=== PATIENT | female | born 1960 | race African-American/Black ===

== ENCOUNTER 2018-10-27 22:41 | Inpatient (IN) | payer MEDICAID, OTHER ==
[~2018-10-27] VITALS: Ht 157.5 cm; Wt 86.6 kg
[2018-10-27 23:15] LABS: BASOPHILS % (AUTO) 0.3 % (0-1); EOSINOPHILS # (AUTO) 0.2 X10'3 (0-0.9); EOSINOPHILS % (AUTO) 2.5 % (0-6); HEMATOCRIT 29.5 % (35.0-45.0); HEMOGLOBIN 9.8 g/dl (12.0-16.0); LYMPHOCYTES # (AUTO) 1.2 X10'3 (1.1-4.8); LYMPHOCYTES % (AUTO) 15.9 % (21-51); MEAN CORPUSCULAR HEMOGLOBIN 30.5 PG (27.0-31.0); MEAN CORPUSCULAR HGB CONC 33.1 % (33.0-36.5); MEAN CORPUSCULAR VOLUME 92.3 FL (78-98); MEAN PLATELET VOLUME 7.5 FL (7.4-10.4); MONOCYTES # (AUTO) 0.2 X10'3 (0-0.9); MONOCYTES % (AUTO) 3.1 % (2-12); NEUTROPHILS # (AUTO) 5.8 X10'3 (1.8-7.7); NEUTROPHILS % (AUTO) 78.2 % (42-75); PLATELET COUNT 438 X10'3 (140-440); RED CELL DISTRIBUTION WIDTH 13.7 % (11.5-14.5); WHITE BLOOD COUNT 7.4 X10'3 (4.5-11.0)
[2018-10-27 23:28] LABS: PROTHROMBIN TIME 11.1 SECONDS (9.0-12.0)
[2018-10-27 23:29] LABS: INR 1.1 INR
[2018-10-27 23:31] LABS: ALANINE AMINOTRANSFERASE 14 U/L (12-78); ALBUMIN 3.3 G/DL (3.4-5.0); ALBUMIN/GLOBULIN RATIO 0.8 (1.1-1.5); ALKALINE PHOSPHATASE 93 IU/L (46-116); ANION GAP 15 (8-16); ASPARTATE AMINO TRANSFERASE 16 U/L (10-37); BILIRUBIN,TOTAL 0.2 MG/DL (0.1-1.0); BLOOD UREA NITROGEN 37 MG/DL (7-18); CALCIUM 9.3 MG/DL (8.5-10.1); CHLORIDE 104 MMOL/L (99-107); CREATININE 2.64 MG/DL (0.40-0.90); GLUCOSE 171 MG/DL (70-104); POTASSIUM 5.2 MMOL/L (3.5-5.1); SODIUM 136 MMOL/L (135-145); TOTAL CARBON DIOXIDE 16.8 MMOL/L (24-32); TOTAL PROTEIN 7.7 G/DL (6.4-8.2); eGFR 22 ML/MIN
[2018-10-27] MEDS ORDERED: ondansetron 4mg rapidly disintigrating tab PO ONE (23:55)
[2018-10-27] MEDS ORDERED: HYDROcodone/acetaminophen 5mg/325mg tablet PO ONE (23:55)
[2018-10-27] MEDS ORDERED: pantoprazole 40mg Tablet.DR PO ONE (23:55)
[2018-10-27] MEDS ORDERED: mag hydrox/Alum hydrox/simeth 30ml oral suspension PO ONE (23:55)
[2018-10-27] MEDS ORDERED: famotidine 20mg tablet PO ONE (23:55)
[2018-10-27] MEDS ORDERED: LIDOcaine Viscous 15ml cup PO ONE (23:55)
[2018-10-28] VITALS (19 sets, daily range): BP systolic 121–173; BP diastolic 57–87
[2018-10-28 00:37] LABS: LIPASE 646 U/L (73-393); TROPONIN I < 0.04 NG/ML (0.0-0.05)
[2018-10-28] MEDS ORDERED: piperacillin/tazo 3.375gm/50ml 50 ML IV SCH ×3 (01:00→20:00)
[2018-10-28] MEDS ORDERED: normal saline 1000ML IV soln IVB ONE (01:00)
[2018-10-28] MEDS ORDERED: dextrose ORAL solution 15 GM/59 ML bottle PO PRN ×2 (01:40)
[2018-10-28] MEDS ORDERED: morphine 2 MG/ML inj. syringe IV PRN (01:40)
[2018-10-28] MEDS ORDERED: magnesium hydroxide 30ml (MOM) UD suspension PO PRN (01:40)
[2018-10-28] MEDS ORDERED: dextrose 50%-water 50ml dispensing syringe IV PRN ×2 (01:40)
[2018-10-28] MEDS ORDERED: acetaminophen 325mg tablet PO PRN ×2 (01:40)
[2018-10-28] MEDS ORDERED: acetaminophen 650mg rectal suppository RC PRN (01:40)
[2018-10-28] MEDS ORDERED: glucagon, human recombinant 1mg kit SUBCUT PRN (01:40)
[2018-10-28] MEDS ORDERED: ondansetron/PF 4mg/2ml inj IV PRN ×2 (01:40→14:05)
[2018-10-28] MEDS ORDERED: diphenhydrAMINE 25mg capsule PO PRN (01:40)
[2018-10-28] MEDS ORDERED: diphenhydrAMINE 50 mg/ml inj IV PRN (01:40)
[2018-10-28] MEDS ORDERED: mag hydrox/Alum hydrox/simeth 30ml oral suspension PO PRN (01:40)
[2018-10-28] MEDS ORDERED: MESSAGE TO PHARMACY PO ONE (01:40)
[2018-10-28] MEDS ORDERED: bisacodyl 10mg suppository rectal RC PRN (01:40)
[2018-10-28 02:04] LABS: CLARITY,URINE CLEAR (Clear); COLOR,URINE YELLOW (Yellow); GLUCOSE, URINE NEGATIVE (Neg); KETONES,URINE TRACE mg/dl (Neg); LEUKOCYTE ESTERASE ,URINE NEGATIVE (Neg); NITRITES, URINE NEGATIVE (Neg); OCCULT BLOOD,URINE TRACE-INTACT (Neg); PROTEIN,URINE >=300 mg/dl (Neg); UROBILINOGEN,URINE 0.2 E.U/dL (0.2-1.0)
[2018-10-28 02:07] LABS: HEMOGLOBIN A1C 6.2 % (4.5-6.2)
[2018-10-28 02:09] LABS: UA COLLECTION TYPE CLN CATCH MIDSTREAM
[2018-10-28 02:17] LABS: MUCUS STRANDS FEW /LPF (Neg); SQUAMOUS EPITHELIAL CELL,UR MODERATE /LPF (FEW)
[2018-10-28 02:18] LABS: AMORPHOUS URATES 1+; BACTERIA,URINE 2+ /HPF (Neg); RBC,URINE 0-2 /HPF (0-2); WBC,URINE 0-4 /HPF (0-4)
[2018-10-28 02:54] LABS: MAGNESIUM 2.4 MG/DL (1.5-2.4); PHOSPHORUS 3.1 MG/DL (2.3-4.5)
[2018-10-28] MEDS: pantoprazole 40MG/NS 100ML BAG 100 ML IV SCH ×6 (02:58→23:27)
[2018-10-28] MEDS ORDERED: furosemide 10 MG/1 ML 10ml inj IV ONE (03:20)
[2018-10-28] MEDS ORDERED: normal saline 1000ml 1,000 ML IV ONE (03:20)
[2018-10-28] MEDS: piperacillin/tazo 3.375gm/50ml 50 ML IV SCH ×2 (03:36→07:21)
[2018-10-28] MEDS ORDERED: AMLO10TA13 PO (05:02)
[2018-10-28] MEDS ORDERED: GLIM1TAB46 PO (05:02)
[2018-10-28] MEDS ORDERED: FURO-150 PO (05:03)
[2018-10-28] MEDS ORDERED: ASPI-1265 PO (05:04)
[2018-10-28] MEDS ORDERED: OMEP20TA23 PO (05:07)
[2018-10-28] MEDS ORDERED: METF500T PO (05:08)
[2018-10-28] MEDS ORDERED: diatrozoate meglu/diatrozoate sod (37% iodine) 120ML oral solution PO ONE (05:50)
[2018-10-28] MEDS: HYDROmorphone 1 mg/ml syringe IV PRN ×3 (05:56→23:27)
[2018-10-28] MEDS: normal saline 1000ml 1,000 ML IV SCH ×3 (06:01→21:36)
[2018-10-28] MEDS ORDERED: diatr meglu/diatrizoate 30ml oral sol.-(3 dose) bottle PO ONE ×2 (07:15→08:20)
[2018-10-28] MEDS: docusate sod 100mg capsule PO SCH ×2 (07:18→19:25)
[2018-10-28] MEDS ORDERED: piperacillin/tazo 4.5gm/100ml 100 ML IV SCH (08:00)
[2018-10-28] MEDS ORDERED: pantoprazole 40 MG vial IV SCH (08:00)
[2018-10-28] MEDS ORDERED: LISI-600 PO (10:44)
[2018-10-28] MEDS ORDERED: CARV-50 PO (10:44)
[2018-10-28 12:13] LABS: BASOPHILS % (AUTO) 0.1 % (0-1); EOSINOPHILS % (AUTO) 0.1 % (0-6); LYMPHOCYTES # (AUTO) 0.3 X10'3 (1.1-4.8); LYMPHOCYTES % (AUTO) 6.7 % (21-51); MEAN CORPUSCULAR HEMOGLOBIN 30.5 PG (27.0-31.0); MEAN CORPUSCULAR HGB CONC 33.4 % (33.0-36.5); MEAN CORPUSCULAR VOLUME 91.3 FL (78-98); MONOCYTES # (AUTO) 0.2 X10'3 (0-0.9); MONOCYTES % (AUTO) 4.5 % (2-12); NEUTROPHILS # (AUTO) 3.5 X10'3 (1.8-7.7); NEUTROPHILS % (AUTO) 88.6 % (42-75); PRE OP HEMATOCRIT 32.3 % (35.0-45.0); PRE OP INR 1.2 INR; PRE OP PLATELET COUNT 413 X10'3 (140-440); PRE OP PROTIME 11.7 SECONDS (9.0-12.0); RED BLOOD COUNT 3.53 X10'6 (4.20-5.60); RED CELL DISTRIBUTION WIDTH 13.5 % (11.5-14.5)
[2018-10-28] MEDS ORDERED: gentamicin 40 MG/1 ML inj ONE (12:20)
[2018-10-28] MEDS ORDERED: clindamycin phosphate 150mg/ml inj. ONE (12:20)
[2018-10-28 12:27] LABS: PRE OP HEMOGLOBIN 10.8 g/dL (12.0-16.0)
[2018-10-28] MEDS ORDERED: ceFOXitin 2 GM ADDvantage bag 100 ML IV ONE (12:45)
[2018-10-28] MEDS ORDERED: sevoflurane 250ml liquid IH ONE (13:10)
[2018-10-28] MEDS ORDERED: ondansetron/PF 4mg/2ml inj ONE (13:10)
[2018-10-28] MEDS ORDERED: midazolam 2 mg/2 ml injection ONE (13:14)
[2018-10-28] MEDS ORDERED: fentaNYL /PF 50mcg/ml 5ml ampule ONE (13:14)
[2018-10-28] MEDS ORDERED: LIDOcaine 2% (20mg/ml) 5ml vial ONE (13:16)
[2018-10-28] MEDS ORDERED: propofol inj 20 ML IV ONE (13:17)
[2018-10-28] MEDS ORDERED: rocuronium 10mg/ml inj IV ONE (13:17)
[2018-10-28] MEDS: piperacillin-tazo 2.25gm/50ml 50 ML IV SCH ×2 (14:00→19:31)
[2018-10-28] MEDS ORDERED: ringers solution, lacted 1,000 ML IV SCH (14:01)
[2018-10-28] MEDS ORDERED: morphine 4 MG/ML inj SYRINge IV PRN ×2 (14:05)
[2018-10-28] MEDS ORDERED: proCHLORperazine 10 MG/2 ml inj IV PRN (14:05)
[2018-10-28] MEDS ORDERED: meperidine/PF 25mg/ml syringe IV PRN ×3 (14:05)
[2018-10-28] MEDS ORDERED: glycopyrrolate 0.2mg/ml inj ONE (14:20)
[2018-10-28] MEDS ORDERED: neostigmine methylsulfate 1 MG/ML 10ml vial ONE (14:20)
[2018-10-28] MEDS ORDERED: phenylephrine 10mg/ml inj. ONE (14:20)
[2018-10-28] MEDS ORDERED: sugammadex 200mg/2ml injection IV ONE (14:33)
[2018-10-28] MEDS: insulin Lispro (HumaLOG) vial - multi-dose SQ SCH (17:46)
[2018-10-28] MEDS ORDERED: temazepam 15mg capsule PO PRN (21:00)
[2018-10-29] VITALS: BP 126/53
[2018-10-29] MEDS: normal saline 1000ml 1,000 ML IV SCH (00:34)
[2018-10-29] MEDS: pantoprazole 40MG/NS 100ML BAG 100 ML IV SCH ×5 (01:00→22:28)
[2018-10-29] MEDS: clindamycin 300mg/D5W 50mL 50 ML IV SCH ×3 (01:39→18:28)
[2018-10-29] MEDS: piperacillin-tazo 2.25gm/50ml 50 ML IV SCH ×4 (02:25→20:00)
[2018-10-29 05:08] LABS: BASOPHILS % (AUTO) 0.1 % (0-1); EOSINOPHILS % (AUTO) 0 % (0-6); HEMOGLOBIN 9.9 g/dl (12.0-16.0); LYMPHOCYTES # (AUTO) 0.5 X10'3 (1.1-4.8); LYMPHOCYTES % (AUTO) 6.1 % (21-51); MEAN CORPUSCULAR HEMOGLOBIN 30.7 PG (27.0-31.0); MEAN CORPUSCULAR HGB CONC 32.9 % (33.0-36.5); MEAN CORPUSCULAR VOLUME 93.3 FL (78-98); MEAN PLATELET VOLUME 7.9 FL (7.4-10.4); MONOCYTES # (AUTO) 0.6 X10'3 (0-0.9); MONOCYTES % (AUTO) 7.2 % (2-12); NEUTROPHILS # (AUTO) 7.2 X10'3 (1.8-7.7); NEUTROPHILS % (AUTO) 86.6 % (42-75); PLATELET COUNT 379 X10'3 (140-440); RED BLOOD COUNT 3.21 X10'6 (4.20-5.60); RED CELL DISTRIBUTION WIDTH 14.2 % (11.5-14.5); WHITE BLOOD COUNT 8.3 X10'3 (4.5-11.0)
[2018-10-29 05:24] LABS: ALANINE AMINOTRANSFERASE 15 U/L (12-78); ALBUMIN 2.1 G/DL (3.4-5.0); ALBUMIN/GLOBULIN RATIO 0.5 (1.1-1.5); ALKALINE PHOSPHATASE 67 IU/L (46-116); ANION GAP 13 (8-16); ASPARTATE AMINO TRANSFERASE 17 U/L (10-37); BILIRUBIN,TOTAL 0.3 MG/DL (0.1-1.0); BLOOD UREA NITROGEN 35 MG/DL (7-18); BUN/CREATININE RATIO 12.8 (6.6-38.0); CALCIUM 7.9 MG/DL (8.5-10.1); CHLORIDE 111 MMOL/L (99-107); CREATININE 2.73 MG/DL (0.40-0.90); GLUCOSE 125 MG/DL (70-104); POTASSIUM 5.6 MMOL/L (3.5-5.1); SODIUM 142 MMOL/L (135-145); TOTAL CARBON DIOXIDE 18.3 MMOL/L (24-32); eGFR 22 ML/MIN
[2018-10-29] MEDS: HYDROmorphone 1 mg/ml syringe IV PRN ×2 (05:55→19:24)
[2018-10-29] MEDS: docusate sod 100mg capsule PO SCH ×2 (06:54→19:56)
[2018-10-29 07:00] VITALS: BP 139/57
[2018-10-29] MEDS ORDERED: clindamycin 300mg/D5W 50mL 50 ML IV SCH (08:00)
[2018-10-29 11:00] VITALS: BP 145/63
[2018-10-29] MEDS: sodium bicarbonate (8.4%) inj. 100 MEQ in sodium chloride 0.45% 1,000 ML IV SCH ×2 (12:01→22:29)
[2018-10-29] MEDS ORDERED: FLU VACC QUAD 2018(5 YR UP)/PF 60 MCG/0.5 ML SYRINGE IM ONE (15:00)
[2018-10-29] MEDS: lisinopril 5mg tablet PO SCH (16:50)
[2018-10-29 17:27] LABS: CLARITY,URINE SLIGHTLY CLOUDY (Clear); COLOR,URINE YELLOW (Yellow); GLUCOSE, URINE NEGATIVE (Neg); KETONES,URINE TRACE mg/dl (Neg); LEUKOCYTE ESTERASE ,URINE NEGATIVE (Neg); NITRITES, URINE NEGATIVE (Neg); OCCULT BLOOD,URINE MODERATE (Neg); PH,URINE 5.5 (4.8-8.0); PROTEIN,URINE 100 mg/dl (Neg); UROBILINOGEN,URINE 0.2 E.U/dL (0.2-1.0)
[2018-10-29 17:30] LABS: UA COLLECTION TYPE NON-SPECIFIED
[2018-10-29 17:34] LABS: RBC,URINE 0-2 /HPF (0-2); SQUAMOUS EPITHELIAL CELL,UR FEW /LPF (FEW)
[2018-10-29 17:35] LABS: AMORPHOUS URATES 2+; BACTERIA,URINE NONE SEEN /HPF (Neg); WBC,URINE NONE SEEN /HPF (0-4)
[2018-10-29 17:37] LABS: TOTAL PROTEIN,URINE RANDOM 238.8 MG/DL
[2018-10-29 19:00] VITALS: BP 166/78
[2018-10-30] VITALS (7 sets, daily range): BP systolic 122–181; BP diastolic 59–84
[2018-10-30] MEDS: piperacillin-tazo 2.25gm/50ml 50 ML IV SCH ×4 (01:47→19:55)
[2018-10-30] MEDS: clindamycin 300mg/D5W 50mL 50 ML IV SCH ×3 (02:24→18:14)
[2018-10-30] MEDS: pantoprazole 40MG/NS 100ML BAG 100 ML IV SCH ×5 (03:33→20:54)
[2018-10-30 06:46] LABS: BASOPHILS % (AUTO) 0 % (0-1); EOSINOPHILS % (AUTO) 0.1 % (0-6); HEMATOCRIT 26.4 % (35.0-45.0); HEMOGLOBIN 8.6 g/dl (12.0-16.0); LYMPHOCYTES # (AUTO) 0.6 X10'3 (1.1-4.8); LYMPHOCYTES % (AUTO) 5.4 % (21-51); MEAN CORPUSCULAR HEMOGLOBIN 30.1 PG (27.0-31.0); MEAN CORPUSCULAR HGB CONC 32.5 % (33.0-36.5); MEAN CORPUSCULAR VOLUME 92.6 FL (78-98); MEAN PLATELET VOLUME 7.6 FL (7.4-10.4); MONOCYTES # (AUTO) 0.6 X10'3 (0-0.9); NEUTROPHILS # (AUTO) 9.4 X10'3 (1.8-7.7); NEUTROPHILS % (AUTO) 88.5 % (42-75); PLATELET COUNT 410 X10'3 (140-440); RED BLOOD COUNT 2.85 X10'6 (4.20-5.60); RED CELL DISTRIBUTION WIDTH 14.8 % (11.5-14.5); WHITE BLOOD COUNT 10.7 X10'3 (4.5-11.0)
[2018-10-30 07:09] LABS: ALANINE AMINOTRANSFERASE 14 U/L (12-78); ALBUMIN 1.9 G/DL (3.4-5.0); ALBUMIN/GLOBULIN RATIO 0.5 (1.1-1.5); ALKALINE PHOSPHATASE 70 IU/L (46-116); ANION GAP 14 (8-16); ASPARTATE AMINO TRANSFERASE 16 U/L (10-37); BILIRUBIN,TOTAL 0.3 MG/DL (0.1-1.0); BLOOD UREA NITROGEN 41 MG/DL (7-18); CALCIUM 8.1 MG/DL (8.5-10.1); CHLORIDE 112 MMOL/L (99-107); CREATININE 3.15 MG/DL (0.40-0.90); GLUCOSE 122 MG/DL (70-104); POTASSIUM 4.7 MMOL/L (3.5-5.1); SODIUM 145 MMOL/L (135-145); TOTAL CARBON DIOXIDE 19.4 MMOL/L (24-32); eGFR 18 ML/MIN
[2018-10-30] MEDS: docusate sod 100mg capsule PO SCH ×2 (07:14→19:55)
[2018-10-30] MEDS: lisinopril 5mg tablet PO SCH (07:14)
[2018-10-30] MEDS: sodium bicarbonate (8.4%) inj. 100 MEQ in sodium chloride 0.45% 1,000 ML IV SCH ×2 (07:50→10:18)
[2018-10-30] MEDS: HYDROmorphone 1 mg/ml syringe IV PRN (10:42)
[2018-10-30] MEDS: carVEDilol 12.5mg tablet PO SCH (19:55)
[2018-10-30] MEDS: furosemide 20 MG/2 ML vial IV SCH (19:56)
[2018-10-30] MEDS ORDERED: furosemide 40mg/4ml inj IV SCH (20:00)
[2018-10-31] MEDS: piperacillin-tazo 2.25gm/50ml 50 ML IV SCH ×4 (01:45→19:37)
[2018-10-31] MEDS: pantoprazole 40MG/NS 100ML BAG 100 ML IV SCH ×5 (01:46→19:37)
[2018-10-31] MEDS: clindamycin 300mg/D5W 50mL 50 ML IV SCH (02:22)
[2018-10-31 07:00] VITALS: BP 123/64
[2018-10-31] MEDS: docusate sod 100mg capsule PO SCH ×2 (09:08→19:37)
[2018-10-31] MEDS: carVEDilol 12.5mg tablet PO SCH ×2 (09:09→19:37)
[2018-10-31] MEDS: furosemide 20 MG/2 ML vial IV SCH (09:09)
[2018-10-31 09:22] LABS: BASOPHILS % (AUTO) 0.1 % (0-1); EOSINOPHILS # (AUTO) 0.1 X10'3 (0-0.9); HEMATOCRIT 24.3 % (35.0-45.0); HEMOGLOBIN 7.9 g/dl (12.0-16.0); LYMPHOCYTES # (AUTO) 0.8 X10'3 (1.1-4.8); LYMPHOCYTES % (AUTO) 7.4 % (21-51); MEAN CORPUSCULAR HEMOGLOBIN 30.1 PG (27.0-31.0); MEAN CORPUSCULAR HGB CONC 32.5 % (33.0-36.5); MEAN CORPUSCULAR VOLUME 92.4 FL (78-98); MEAN PLATELET VOLUME 7.2 FL (7.4-10.4); MONOCYTES # (AUTO) 0.7 X10'3 (0-0.9); MONOCYTES % (AUTO) 6.8 % (2-12); NEUTROPHILS % (AUTO) 84.7 % (42-75); PLATELET COUNT 393 X10'3 (140-440); RED BLOOD COUNT 2.63 X10'6 (4.20-5.60); RED CELL DISTRIBUTION WIDTH 14.3 % (11.5-14.5); WHITE BLOOD COUNT 10.7 X10'3 (4.5-11.0)
[2018-10-31] MEDS: insulin Lispro (HumaLOG) vial - multi-dose SQ SCH ×2 (09:49→14:05)
[2018-10-31 10:02] LABS: ALANINE AMINOTRANSFERASE 10 U/L (12-78); ALBUMIN 1.8 G/DL (3.4-5.0); ALBUMIN/GLOBULIN RATIO 0.4 (1.1-1.5); ALKALINE PHOSPHATASE 75 IU/L (46-116); ANION GAP 13 (8-16); ASPARTATE AMINO TRANSFERASE 13 U/L (10-37); BILIRUBIN,TOTAL 0.2 MG/DL (0.1-1.0); BLOOD UREA NITROGEN 44 MG/DL (7-18); BUN/CREATININE RATIO 13.6 (6.6-38.0); CALCIUM 8.1 MG/DL (8.5-10.1); CHLORIDE 110 MMOL/L (99-107); CREATININE 3.23 MG/DL (0.40-0.90); GLUCOSE 170 MG/DL (70-104); POTASSIUM 4.2 MMOL/L (3.5-5.1); SODIUM 143 MMOL/L (135-145); TOTAL CARBON DIOXIDE 20.5 MMOL/L (24-32); eGFR 18 ML/MIN
[2018-10-31] MEDS: HYDROcodone/acetaminophen 10/325mg tab PO PRN (10:45)
[2018-10-31 11:00] VITALS: BP 124/55
[2018-10-31] MEDS: normal saline 1000ml 1,000 ML IV SCH (18:55)
[2018-10-31 19:35] VITALS: BP 180/60
[2018-10-31 20:00] VITALS: BP 148/73
[2018-10-31 23:30] VITALS: BP 138/57
[2018-11-01] MEDS: piperacillin-tazo 2.25gm/50ml 50 ML IV SCH ×4 (01:04→19:10)
[2018-11-01] MEDS: pantoprazole 40MG/NS 100ML BAG 100 ML IV SCH ×3 (01:04→12:02)
[2018-11-01] MEDS: normal saline 1000ml 1,000 ML IV SCH (03:56)
[2018-11-01 05:24] LABS: BASOPHILS % (AUTO) 0 % (0-1); EOSINOPHILS # (AUTO) 0.2 X10'3 (0-0.9); HEMATOCRIT 23.9 % (35.0-45.0); HEMOGLOBIN 7.9 g/dl (12.0-16.0); LYMPHOCYTES % (AUTO) 13.5 % (21-51); MEAN CORPUSCULAR HEMOGLOBIN 30.3 PG (27.0-31.0); MEAN CORPUSCULAR HGB CONC 32.9 % (33.0-36.5); MEAN CORPUSCULAR VOLUME 92.1 FL (78-98); MEAN PLATELET VOLUME 8.1 FL (7.4-10.4); MONOCYTES # (AUTO) 0.8 X10'3 (0-0.9); MONOCYTES % (AUTO) 10.8 % (2-12); NEUTROPHILS # (AUTO) 5.1 X10'3 (1.8-7.7); NEUTROPHILS % (AUTO) 72.7 % (42-75); PLATELET COUNT 378 X10'3 (140-440); RED BLOOD COUNT 2.59 X10'6 (4.20-5.60); RED CELL DISTRIBUTION WIDTH 14.2 % (11.5-14.5)
[2018-11-01 05:30] LABS: ALANINE AMINOTRANSFERASE 9 U/L (12-78); ALBUMIN 1.7 G/DL (3.4-5.0); ALBUMIN/GLOBULIN RATIO 0.4 (1.1-1.5); ALKALINE PHOSPHATASE 72 IU/L (46-116); ANION GAP 13 (8-16); ASPARTATE AMINO TRANSFERASE 14 U/L (10-37); BILIRUBIN,TOTAL 0.3 MG/DL (0.1-1.0); BLOOD UREA NITROGEN 39 MG/DL (7-18); BUN/CREATININE RATIO 13.1 (6.6-38.0); CALCIUM 7.7 MG/DL (8.5-10.1); CHLORIDE 108 MMOL/L (99-107); CREATININE 2.97 MG/DL (0.40-0.90); GLUCOSE 120 MG/DL (70-104); POTASSIUM 4.1 MMOL/L (3.5-5.1); SODIUM 142 MMOL/L (135-145); TOTAL CARBON DIOXIDE 20.9 MMOL/L (24-32); TOTAL PROTEIN 5.8 G/DL (6.4-8.2); eGFR 20 ML/MIN
[2018-11-01 07:00] VITALS: BP 144/54
[2018-11-01] MEDS: docusate sod 100mg capsule PO SCH ×2 (07:34→19:10)
[2018-11-01] MEDS: carVEDilol 12.5mg tablet PO SCH ×2 (07:34→19:10)
[2018-11-01 11:02] VITALS: BP 144/72
[2018-11-01] MEDS: HYDROcodone/acetaminophen 10/325mg tab PO PRN (13:58)
[2018-11-01] MEDS: amLODIPine 5mg tablet PO SCH (16:19)
[2018-11-01] MEDS: insulin Lispro (HumaLOG) vial - multi-dose SQ SCH (18:23)
[2018-11-01 19:00] VITALS: BP 122/53
[2018-11-01] MEDS: pantoprazole 40mg Tablet.DR PO SCH (19:10)
[2018-11-01 20:00] VITALS: BP 122/53
[2018-11-02] VITALS: BP 149/63
[2018-11-02] MEDS: piperacillin-tazo 2.25gm/50ml 50 ML IV SCH ×4 (01:44→19:02)
[2018-11-02 05:31] LABS: HEMATOCRIT 24.3 % (35.0-45.0); HEMOGLOBIN 8.5 g/dl (12.0-16.0); MEAN CORPUSCULAR HEMOGLOBIN 31.9 PG (27.0-31.0); MEAN CORPUSCULAR VOLUME 91.1 FL (78-98); MEAN PLATELET VOLUME 7.9 FL (7.4-10.4); NEUTROPHILS % (AUTO) 69.3 % (42-75); PLATELET COUNT 396 X10'3 (140-440); RED BLOOD COUNT 2.66 X10'6 (4.20-5.60); RED CELL DISTRIBUTION WIDTH 13.1 % (11.5-14.5); WHITE BLOOD COUNT 8.6 X10'3 (4.5-11.0)
[2018-11-02 05:32] LABS: BASOPHILS % (AUTO) 0.2 % (0-1); EOSINOPHILS # (AUTO) 0.3 X10'3 (0-0.9); EOSINOPHILS % (AUTO) 3 % (0-6); LYMPHOCYTES # (AUTO) 1.2 X10'3 (1.1-4.8); LYMPHOCYTES % (AUTO) 13.7 % (21-51); MONOCYTES # (AUTO) 1.2 X10'3 (0-0.9); MONOCYTES % (AUTO) 13.8 % (2-12); NEUTROPHILS # (AUTO) 5.9 X10'3 (1.8-7.7)
[2018-11-02 05:44] LABS: ALANINE AMINOTRANSFERASE 9 U/L (12-78); ALBUMIN 1.7 G/DL (3.4-5.0); ALBUMIN/GLOBULIN RATIO 0.4 (1.1-1.5); ALKALINE PHOSPHATASE 61 IU/L (46-116); ANION GAP 11 (8-16); ASPARTATE AMINO TRANSFERASE 10 U/L (10-37); BILIRUBIN,TOTAL 0.2 MG/DL (0.1-1.0); BLOOD UREA NITROGEN 39 MG/DL (7-18); CALCIUM 7.5 MG/DL (8.5-10.1); CHLORIDE 107 MMOL/L (99-107); CREATININE 3.01 MG/DL (0.40-0.90); GLUCOSE 141 MG/DL (70-104); POTASSIUM 3.8 MMOL/L (3.5-5.1); SODIUM 139 MMOL/L (135-145); TOTAL CARBON DIOXIDE 20.7 MMOL/L (24-32); TOTAL PROTEIN 5.6 G/DL (6.4-8.2); eGFR 19 ML/MIN
[2018-11-02 07:00] VITALS: BP_SYST 118; BP_SYST 163; BP_DIAS 69; BP_DIAS 91
[2018-11-02] MEDS: pantoprazole 40mg Tablet.DR PO SCH ×2 (07:25→21:14)
[2018-11-02] MEDS: amLODIPine 5mg tablet PO SCH (07:25)
[2018-11-02] MEDS: carVEDilol 12.5mg tablet PO SCH ×2 (07:25→21:15)
[2018-11-02] MEDS: docusate sod 100mg capsule PO SCH ×2 (07:25→20:00)
[2018-11-02 10:35] VITALS: BP 163/69
[2018-11-02 11:00] VITALS: BP 157/57
[2018-11-02] MEDS: normal saline 1000ml 1,000 ML IV SCH ×2 (11:55→19:02)
[2018-11-02] MEDS ORDERED: amLODIPine 5mg tablet PO ONE (12:00)
[2018-11-02] MEDS: insulin Lispro (HumaLOG) vial - multi-dose SQ SCH (18:58)
[2018-11-02 20:00] VITALS: BP 162/60
[2018-11-03] VITALS: BP 143/59
[2018-11-03] MEDS: piperacillin-tazo 2.25gm/50ml 50 ML IV SCH ×3 (01:09→14:00)
[2018-11-03] MEDS: normal saline 1000ml 1,000 ML IV SCH ×2 (01:44→11:55)
[2018-11-03 07:22] VITALS: BP 164/71
[2018-11-03] MEDS ORDERED: amLODIPine 5mg tablet PO SCH (08:00)
[2018-11-03] MEDS ORDERED: lisinopril 20mg tablet PO SCH (09:00)
[2018-11-03] MEDS: carVEDilol 12.5mg tablet PO SCH (09:22)
[2018-11-03] MEDS: pantoprazole 40mg Tablet.DR PO SCH (09:23)
[2018-11-03] MEDS: docusate sod 100mg capsule PO SCH (09:23)
[2018-11-03] MEDS: insulin Lispro (HumaLOG) vial - multi-dose SQ SCH (09:29)
[2018-11-03 10:06] LABS: ALANINE AMINOTRANSFERASE 9 U/L (12-78); ALBUMIN 1.9 G/DL (3.4-5.0); ALBUMIN/GLOBULIN RATIO 0.4 (1.1-1.5); ALKALINE PHOSPHATASE 80 IU/L (46-116); ANION GAP 11 (8-16); ASPARTATE AMINO TRANSFERASE 14 U/L (10-37); BILIRUBIN,TOTAL 0.2 MG/DL (0.1-1.0); BLOOD UREA NITROGEN 35 MG/DL (7-18); BUN/CREATININE RATIO 12.5 (6.6-38.0); CALCIUM 8.3 MG/DL (8.5-10.1); CHLORIDE 104 MMOL/L (99-107); CREATININE 2.79 MG/DL (0.40-0.90); GLUCOSE 180 MG/DL (70-104); POTASSIUM 3.9 MMOL/L (3.5-5.1); SODIUM 138 MMOL/L (135-145); TOTAL CARBON DIOXIDE 23.4 MMOL/L (24-32); TOTAL PROTEIN 6.6 G/DL (6.4-8.2); eGFR 21 ML/MIN
[2018-11-03 10:07] LABS: BASOPHILS % (AUTO) 0 % (0-1); EOSINOPHILS # (AUTO) 0.2 X10'3 (0-0.9); EOSINOPHILS % (AUTO) 2.3 % (0-6); HEMATOCRIT 27.7 % (35.0-45.0); HEMOGLOBIN 9.1 g/dl (12.0-16.0); LYMPHOCYTES % (AUTO) 9.8 % (21-51); MEAN CORPUSCULAR HEMOGLOBIN 30.1 PG (27.0-31.0); MEAN CORPUSCULAR HGB CONC 32.8 % (33.0-36.5); MEAN CORPUSCULAR VOLUME 91.9 FL (78-98); MEAN PLATELET VOLUME 7.7 FL (7.4-10.4); MONOCYTES # (AUTO) 1.4 X10'3 (0-0.9); MONOCYTES % (AUTO) 14.2 % (2-12); NEUTROPHILS # (AUTO) 7.2 X10'3 (1.8-7.7); NEUTROPHILS % (AUTO) 73.7 % (42-75); PLATELET COUNT 489 X10'3 (140-440); RED BLOOD COUNT 3.02 X10'6 (4.20-5.60); RED CELL DISTRIBUTION WIDTH 13.7 % (11.5-14.5); WHITE BLOOD COUNT 9.8 X10'3 (4.5-11.0)
[2018-11-03 11:15] VITALS: BP 151/75
[2018-11-03 11:37] VITALS: BP 151/75
[2018-11-03 13:10] VITALS: BP 153/63
[2018-11-03] MEDS ORDERED: AMOX-580 PO (14:59)
== END 2018-11-03 15:30 | disposition home or self-care (01) | DRG 223 ==
LOC: ER 22:42 → ED HOLD 10-28 01:36 → SUR 3N 10-28 04:20
PROVIDERS: ADMIT Family Medicine; ATTEND Family Medicine
PROC: 0DU907Z Supplement Duodenum with Autologous Tissue Substitute, Open Approach (ICD-10-PCS; principal; 2018-10-28 13:05)
PROC: 3E02340 Introduction of Influenza Vaccine into Muscle, Percutaneous Approach (ICD-10-PCS; 2018-10-29)
DX: K26.1 Acute duodenal ulcer with perforation (principal); N17.0 Acute kidney failure with tubular necrosis; E11.10 Type 2 diabetes mellitus with ketoacidosis without coma; K65.8 Other peritonitis; I13.0 Hypertensive heart and chronic kidney disease with heart failure and stage 1 through stage 4 chronic kidney disease, or unspecified chronic kidney disease; E11.21 Type 2 diabetes mellitus with diabetic nephropathy; I50.32 Chronic diastolic (congestive) heart failure; E11.22 Type 2 diabetes mellitus with diabetic chronic kidney disease; E87.2 Acidosis; D62 Acute posthemorrhagic anemia; E87.5 Hyperkalemia; K52.9 Noninfective gastroenteritis and colitis, unspecified; N18.4 Chronic kidney disease, stage 4 (severe); K56.7 Ileus, unspecified; K21.9 Gastro-esophageal reflux disease without esophagitis; Z60.2 Problems related to living alone; Z88.2 Allergy status to sulfonamides; Z79.899 Other long term (current) drug therapy; Z79.82 Long term (current) use of aspirin; Z79.84 Long term (current) use of oral hypoglycemic drugs; Z80.0 Family history of malignant neoplasm of digestive organs; Z82.49 Family history of ischemic heart disease and other diseases of the circulatory system; Z83.3 Family history of diabetes mellitus; Z23 Encounter for immunization
CPT/HCPCS: 36415; 71045; 74150; 74176; 76775; 80053; 81001; 82570; 82948; 83036; 83605; 83690; 83735; 83880; 83935; 84100; 84156; 84300; 84484; 85025; 85610; 85730; 86885; 86900; 86901; 87040; 87070; 87075; 87077; 87102; 93005; 93306; 99285; A6253; A6266; A6449; A7000; C1758; C9113; C9399; G0378; J0694; J1170; J1580; J1940; J2001; J2250; J2370; J2405; J2543; J2704; J2710; J3010; J3490; J7030; J7120; Q2037; Q9963; X5958

== ENCOUNTER 2019-01-20 16:36 | Emergency (ER) | payer MEDICAID, OTHER ==
[~2019-01-20] VITALS: Ht 154.9 cm; Wt 77.3 kg
[~2019-01-20 16:36] MED LIST: AMLO10TA13 PO; ASPI-1265 PO; CARV-50 PO; GLIM1TAB46 PO; LISI-600 PO; OMEP20TA23 PO
[2019-01-20] MEDS ORDERED: hyDRALAzine 10mg tablet PO ONE (19:55)
[2019-01-20] MEDS ORDERED: hyDRALAzine 10mg tablet PO SCH (19:55)
[2019-01-20 20:09] VITALS: BP 186/85
== END 2019-01-20 20:36 | disposition home or self-care (01) ==
LOC: ER 16:36
DX: I11.0 Hypertensive heart disease with heart failure (principal); I50.9 Heart failure, unspecified; E11.9 Type 2 diabetes mellitus without complications; Z88.2 Allergy status to sulfonamides; Z79.82 Long term (current) use of aspirin; Z79.899 Other long term (current) drug therapy
CPT/HCPCS: 93005; 99284

== ENCOUNTER 2019-02-22 14:04 | Inpatient (IN) | payer MEDICAID ==
[~2019-02-22] VITALS: Ht 157.5 cm; Wt 81.4 kg
[2019-02-22 15:56] LABS: BASOPHILS % (AUTO) 0.7 % (0-1); EOSINOPHILS # (AUTO) 0.4 X10'3 (0-0.9); EOSINOPHILS % (AUTO) 8.7 % (0-6); HEMATOCRIT 28.7 % (35.0-45.0); HEMOGLOBIN 9.5 g/dl (12.0-16.0); LYMPHOCYTES # (AUTO) 1.6 X10'3 (1.1-4.8); LYMPHOCYTES % (AUTO) 33.9 % (21-51); MEAN CORPUSCULAR HEMOGLOBIN 29.5 PG (27.0-31.0); MEAN CORPUSCULAR HGB CONC 33.1 g/dL (33.0-36.5); MEAN PLATELET VOLUME 6.9 FL (7.4-10.4); MONOCYTES # (AUTO) 0.5 X10'3 (0-0.9); MONOCYTES % (AUTO) 9.6 % (2-12); NEUTROPHILS # (AUTO) 2.2 X10'3 (1.8-7.7); NEUTROPHILS % (AUTO) 47.1 % (42-75); PLATELET COUNT 289 X10'3 (140-440); RED BLOOD COUNT 3.23 X10'6 (4.20-5.60); RED CELL DISTRIBUTION WIDTH 16.2 % (11.5-14.5); WHITE BLOOD COUNT 4.7 X10'3 (4.5-11.0)
[2019-02-22 16:08] LABS: ALANINE AMINOTRANSFERASE 32 U/L (12-78); ALBUMIN 3.6 G/DL (3.4-5.0); ALBUMIN/GLOBULIN RATIO 0.9 (1.1-1.5); ALKALINE PHOSPHATASE 72 IU/L (46-116); ANION GAP 9 (8-16); ASPARTATE AMINO TRANSFERASE 19 U/L (10-37); BILIRUBIN,TOTAL 0.1 MG/DL (0.1-1.0); BLOOD UREA NITROGEN 57 MG/DL (7-18); BUN/CREATININE RATIO 18.4 (6.6-38.0); CALCIUM 8.7 MG/DL (8.5-10.1); CHLORIDE 110 MMOL/L (99-107); SODIUM 138 MMOL/L (135-145); TOTAL CARBON DIOXIDE 19.3 MMOL/L (24-32); TOTAL PROTEIN 7.5 G/DL (6.4-8.2); eGFR 19 ML/MIN
[2019-02-22 16:17] LABS: GLUCOSE 63 MG/DL (70-104); POTASSIUM 6.7 MMOL/L (3.5-5.1)
[2019-02-22] MEDS ORDERED: sodium bicarbonate (0.9mEq/ml) 44.6 mEq/50ml syringe IV ONE (16:20)
[2019-02-22] MEDS ORDERED: normal saline 1000ML IV soln IVB ONE (16:20)
[2019-02-22] MEDS ORDERED: calcium gluconate inj. 1 GM in normal saline 100ml IV soln 100 ML IV ONE (16:20)
[2019-02-22] MEDS ORDERED: sodium polystyrene sulfonate 15gm/60ml oral suspension PO ONE (16:20)
[2019-02-22] MEDS ORDERED: dextrose 50%-water 50ml dispensing syringe IV ONE ×2 (16:20→18:20)
[2019-02-22] MEDS ORDERED: insulin regular, human 10 units/0.1 ml syringe IV ONE (16:20)
[2019-02-22] MEDS ORDERED: sodium bicarbonate (8.4%) inj. 1 MEQ/ML ML IV ONE (17:05)
[2019-02-22] MEDS ORDERED: LISI40TA4 PO (17:35)
[2019-02-22] MEDS ORDERED: CARV25TA2 PO (17:35)
[2019-02-22] MEDS: normal saline 1000ml 1,000 ML IV SCH (17:46)
[2019-02-22] MEDS ORDERED: magnesium hydroxide 30ml (MOM) UD suspension PO PRN (17:50)
[2019-02-22] MEDS ORDERED: mag hydrox/Alum hydrox/simeth 30ml oral suspension PO PRN (17:50)
[2019-02-22] MEDS ORDERED: ondansetron/PF 4mg/2ml inj IV PRN (17:50)
[2019-02-22] MEDS ORDERED: acetaminophen 325mg tablet PO PRN ×2 (17:50)
--- NOTE | 2019-02-22 18:26 | NUR ---
AWARE OF BS 20. CORAL IS ADMIN D50
[2019-02-22] MEDS ORDERED: glucagon, human recombinant 1mg kit SUBCUT PRN (18:35)
[2019-02-22] MEDS ORDERED: MESSAGE TO PHARMACY PO ONE (18:35)
[2019-02-22] MEDS ORDERED: dextrose 50%-water 50ml dispensing syringe IV PRN ×2 (18:35)
[2019-02-22] MEDS ORDERED: dextrose ORAL solution 15 GM/59 ML bottle PO PRN ×2 (18:35)
[2019-02-22] MEDS ORDERED: insulin Lispro (HumaLOG) vial - multi-dose SQ SCH (18:35)
[2019-02-22 19:08] LABS: HEMOGLOBIN A1C 5.8 % (4.5-6.2)
[2019-02-22] MEDS ORDERED: non-formulary drug (Carvedilol 1 TAB) PO SCH (20:00)
[2019-02-22] MEDS: carVEDilol 12.5mg tablet PO SCH (20:49)
[2019-02-22] MEDS: heparin, porcine 5000 units/ml vial SQ SCH (20:49)
[2019-02-22] MEDS ORDERED: temazepam 15mg capsule PO PRN (21:00)
[2019-02-22] MEDS ORDERED: aspirin 81mg tab.chew PO SCH (21:00)
[2019-02-22] MEDS ORDERED: insulin glargine (Lantus) pen - multi-dose SQ SCH (21:00)
--- NOTE | 2019-02-22 22:23 | NUR ---
Patient in room ED 10. I have received report from Allyssa ORELLANA and had the opportunity to ask questions and assume patient care.
--- NOTE | 2019-02-22 23:20 | NUR ---
Patient arrived to PCU.
[2019-02-22] MEDS: hyDRALAzine 10mg tablet PO SCH (23:34)
[2019-02-22 23:45] VITALS: BP 209/81
--- NOTE | 2019-02-23 00:21 | NUR ---
Paged Dr. Mi. PAGER ID: [phone] MESSAGE: Ed ORELLANA [phone] Kerri Sheth: BP on admit (2345) 209/8; administered 0000 scheduled hydralazine. Current BP 185/76. Thank you.
[2019-02-23] MEDS ORDERED: labetalol 20mg/4ml (5mg/ml) syringe IV PRN (00:45)
[2019-02-23 03:00] VITALS: BP 182/72
[2019-02-23] MEDS: normal saline 1000ml 1,000 ML IV SCH ×2 (03:46→13:36)
[2019-02-23 07:00] VITALS: BP 189/74
[2019-02-23 07:05] LABS: HEMATOCRIT 26.5 % (35.0-45.0); MEAN CORPUSCULAR HEMOGLOBIN 29.8 PG (27.0-31.0); MEAN CORPUSCULAR HGB CONC 33.9 g/dL (33.0-36.5); MEAN PLATELET VOLUME 7.1 FL (7.4-10.4); PLATELET COUNT 258 X10'3 (140-440); RED BLOOD COUNT 3.01 X10'6 (4.20-5.60); RED CELL DISTRIBUTION WIDTH 16.3 % (11.5-14.5); WHITE BLOOD COUNT 4.4 X10'3 (4.5-11.0)
[2019-02-23 07:21] LABS: ALANINE AMINOTRANSFERASE 30 U/L (12-78); ALBUMIN 2.9 G/DL (3.4-5.0); ALBUMIN/GLOBULIN RATIO 0.8 (1.1-1.5); ALKALINE PHOSPHATASE 62 IU/L (46-116); ASPARTATE AMINO TRANSFERASE 23 U/L (10-37); BILIRUBIN,TOTAL 0.1 MG/DL (0.1-1.0); BLOOD UREA NITROGEN 47 MG/DL (7-18); BUN/CREATININE RATIO 18.1 (6.6-38.0); CALCIUM 8.2 MG/DL (8.5-10.1); CHLORIDE 113 MMOL/L (99-107); GLUCOSE 72 MG/DL (70-104); POTASSIUM 4.9 MMOL/L (3.5-5.1); TOTAL CARBON DIOXIDE 20.7 MMOL/L (24-32); TOTAL PROTEIN 6.6 G/DL (6.4-8.2); eGFR 23 ML/MIN
[2019-02-23] MEDS ORDERED: pantoprazole 40mg Tablet.DR PO SCH (07:30)
[2019-02-23 07:41] LABS: ANION GAP 10 (8-16); SODIUM 144 MMOL/L (135-145)
[2019-02-23] MEDS: heparin, porcine 5000 units/ml vial SQ SCH (08:02)
[2019-02-23] MEDS: carVEDilol 12.5mg tablet PO SCH (08:03)
[2019-02-23] MEDS: hyDRALAzine 10mg tablet PO SCH ×2 (08:03→15:16)
[2019-02-23] MEDS ORDERED: amLODIPine 5mg tablet PO SCH (08:35)
[2019-02-23 11:00] VITALS: BP 179/65
[2019-02-23 15:00] VITALS: BP 180/65
[2019-02-23] MEDS ORDERED: HYDR-4069 PO (15:51)
--- NOTE | 2019-02-23 17:11 | NUR ---
Patient discharged. Patient discharged home. Patient escorted from PCU via wheelchair accompanied by nurse's aide to be driven home in private vehicle by patient's friend/family. IV catheter removed prior to discharge, catheter intact. Tele leads removed from patient and tele box returned to [facility]. New prescriptions delivered to patient at bedside via [facility]. Medications and discharge instructions discussed with patient via RN. All questions and concerns addressed prior to discharge. All patient belongings accompanied patient at discharge.
== END 2019-02-23 17:25 | disposition home health service (06) | DRG 469 ==
LOC: ER 14:05 → ED HOLD 17:45 → PCU 3S 23:00
PROVIDERS: ADMIT Family Medicine; ATTEND Family Medicine
DX: N17.9 Acute kidney failure, unspecified (principal); E11.22 Type 2 diabetes mellitus with diabetic chronic kidney disease; I13.0 Hypertensive heart and chronic kidney disease with heart failure and stage 1 through stage 4 chronic kidney disease, or unspecified chronic kidney disease; I50.9 Heart failure, unspecified; E87.5 Hyperkalemia; K26.9 Duodenal ulcer, unspecified as acute or chronic, without hemorrhage or perforation; D63.1 Anemia in chronic kidney disease; N18.4 Chronic kidney disease, stage 4 (severe); E86.0 Dehydration; L98.9 Disorder of the skin and subcutaneous tissue, unspecified; Z87.11 Personal history of peptic ulcer disease; Z88.2 Allergy status to sulfonamides; Z79.899 Other long term (current) drug therapy; Z79.82 Long term (current) use of aspirin
CPT/HCPCS: 36415; 80053; 82948; 83036; 85025; 85027; 87070; 96361; 96374; 99285; G0378; J0610; J1644; J1815; J3490; J7030

== ENCOUNTER 2019-03-06 14:58 | Inpatient (IN) | payer MEDICAID ==
[~2019-03-06] VITALS: Ht 157.5 cm; Wt 84.5 kg
[~2019-03-06 14:58] MED LIST changes: -CARV-50 PO; +CARV25TA2 PO; +HYDR-4069 PO; -LISI-600 PO
[2019-03-06 16:26] LABS: INR 1.1 INR; PROTHROMBIN TIME 10.8 SECONDS (9.0-12.0)
[2019-03-06 16:37] LABS: ALANINE AMINOTRANSFERASE 77 U/L (12-78); ALBUMIN 3.2 G/DL (3.4-5.0); ALBUMIN/GLOBULIN RATIO 0.8 (1.1-1.5); ALKALINE PHOSPHATASE 103 IU/L (46-116); ANION GAP 12 (8-16); ASPARTATE AMINO TRANSFERASE 89 U/L (10-37); BILIRUBIN,TOTAL 0.1 MG/DL (0.1-1.0); BLOOD UREA NITROGEN 57 MG/DL (7-18); BUN/CREATININE RATIO 19.1 (6.6-38.0); CALCIUM 8.7 MG/DL (8.5-10.1); CHLORIDE 110 MMOL/L (99-107); CREATININE 2.98 MG/DL (0.40-0.90); GLUCOSE 189 MG/DL (70-104); SODIUM 139 MMOL/L (135-145); TOTAL CARBON DIOXIDE 16.9 MMOL/L (24-32); TOTAL PROTEIN 7.4 G/DL (6.4-8.2); eGFR 19 ML/MIN
[2019-03-06 16:53] LABS: POTASSIUM 6.1 MMOL/L (3.5-5.1)
--- NOTE | 2019-03-06 16:59 | NUR ---
pat spo2 85 on 0.5 l nasal cannula ,notified dr nasima penn now on 4l of o2 spo2 92.head of the bed elevated as per md instruction.
[2019-03-06 17:00] LABS: BASOPHILS % (AUTO) 0.8 % (0-1); EOSINOPHILS # (AUTO) 0.5 X10'3 (0-0.9); EOSINOPHILS % (AUTO) 10.7 % (0-6); HEMATOCRIT 24.2 % (35.0-45.0); HEMOGLOBIN 8.2 g/dl (12.0-16.0); LYMPHOCYTES # (AUTO) 0.9 X10'3 (1.1-4.8); LYMPHOCYTES % (AUTO) 20.2 % (21-51); MEAN CORPUSCULAR HEMOGLOBIN 30.2 PG (27.0-31.0); MEAN CORPUSCULAR VOLUME 88.9 FL (78-98); MONOCYTES # (AUTO) 0.4 X10'3 (0-0.9); MONOCYTES % (AUTO) 7.9 % (2-12); NEUTROPHILS # (AUTO) 2.7 X10'3 (1.8-7.7); NEUTROPHILS % (AUTO) 60.4 % (42-75); PLATELET COUNT 296 X10'3 (140-440); RED BLOOD COUNT 2.72 X10'6 (4.20-5.60); RED CELL DISTRIBUTION WIDTH 16.2 % (11.5-14.5); WHITE BLOOD COUNT 4.5 X10'3 (4.5-11.0)
[2019-03-06] MEDS ORDERED: furosemide 10 MG/1 ML 10ml inj IV ONE (17:05)
[2019-03-06] MEDS ORDERED: dextrose 50%-water 50ml dispensing syringe IV ONE ×3 (17:05→20:42)
[2019-03-06] MEDS ORDERED: sodium bicarbonate (8.4%) 1 mEq/ml syringe IV ONE (17:05)
[2019-03-06] MEDS ORDERED: calcium chloride 100 MG/1 ML inj IV ONE (17:05)
[2019-03-06] MEDS ORDERED: insulin regular, human 10 units/0.1 ml syringe IV ONE (17:05)
[2019-03-06] MEDS ORDERED: albuterol 2.5 MG/3 ML nebule CONTNEB ONE (17:05)
[2019-03-06] MEDS ORDERED: HYDR-4069 PO (17:27)
[2019-03-06] MEDS ORDERED: magnesium hydroxide 30ml (MOM) UD suspension PO PRN (18:10)
[2019-03-06] MEDS ORDERED: ipratropium/albuterol 3ml nebule NEB PRN (18:10)
[2019-03-06] MEDS ORDERED: mag hydrox/Alum hydrox/simeth 30ml oral suspension PO PRN (18:10)
[2019-03-06] MEDS ORDERED: ondansetron/PF 4mg/2ml inj IV PRN (18:10)
[2019-03-06] MEDS ORDERED: acetaminophen 325mg tablet PO PRN ×2 (18:10)
[2019-03-06] MEDS: furosemide 20 MG/2 ML vial IV SCH (20:00)
[2019-03-06] MEDS: hydrALAZINE 25 MG tablet PO SCH (20:41)
[2019-03-06] MEDS: aspirin 81mg tab.chew PO SCH (20:41)
[2019-03-06] MEDS: carVEDilol 12.5mg tablet PO SCH (20:42)
[2019-03-06] MEDS ORDERED: sodium polystyrene sulfonate 15gm/60ml oral suspension PO ONE (20:55)
[2019-03-06] MEDS ORDERED: temazepam 15mg capsule PO PRN (21:00)
[2019-03-06] MEDS: ipratropium/albuterol 3ml nebule NEB SCH ×2 (22:45→23:16)
[2019-03-06 23:59] LABS: ALBUMIN 3.2 G/DL (3.4-5.0); ANION GAP 9 (8-16); BLOOD UREA NITROGEN 59 MG/DL (7-18); BUN/CREATININE RATIO 19.7 (6.6-38.0); CALCIUM 9.5 MG/DL (8.5-10.1); CHLORIDE 111 MMOL/L (99-107); CREATININE 2.99 MG/DL (0.40-0.90); GLUCOSE 133 MG/DL (70-104); POTASSIUM 5.5 MMOL/L (3.5-5.1); SODIUM 140 MMOL/L (135-145); TOTAL CARBON DIOXIDE 20.1 MMOL/L (24-32); eGFR 19 ML/MIN
[2019-03-07] MEDS: ipratropium/albuterol 3ml nebule NEB SCH ×6 (03:59→23:46)
--- NOTE | 2019-03-07 06:49 | NUR ---
REPORT TO ESTEBAN SPENCER ON PCU.
[2019-03-07 07:25] LABS: HEMATOCRIT 24.6 % (35.0-45.0); HEMOGLOBIN 8.5 g/dl (12.0-16.0); MEAN CORPUSCULAR HEMOGLOBIN 30.5 PG (27.0-31.0); MEAN CORPUSCULAR HGB CONC 34.6 g/dL (33.0-36.5); MEAN CORPUSCULAR VOLUME 88.1 FL (78-98); MEAN PLATELET VOLUME 6.8 FL (7.4-10.4); PLATELET COUNT 301 X10'3 (140-440); RED BLOOD COUNT 2.79 X10'6 (4.20-5.60); RED CELL DISTRIBUTION WIDTH 16.5 % (11.5-14.5); WHITE BLOOD COUNT 5.3 X10'3 (4.5-11.0)
[2019-03-07 07:38] LABS: ANION GAP 10 (8-16); BLOOD UREA NITROGEN 56 MG/DL (7-18); CALCIUM 9.2 MG/DL (8.5-10.1); CHLORIDE 113 MMOL/L (99-107); CREATININE 2.94 MG/DL (0.40-0.90); GLUCOSE 78 MG/DL (70-104); PHOSPHORUS 4.6 MG/DL (2.3-4.5); POTASSIUM 5.1 MMOL/L (3.5-5.1); SODIUM 142 MMOL/L (135-145); TOTAL CARBON DIOXIDE 19.5 MMOL/L (24-32); eGFR 20 ML/MIN
[2019-03-07 08:00] VITALS: BP 181/69
[2019-03-07] MEDS ORDERED: TYPE IN GENERIC & BRAND NAME OF PATIENT MED STRENGTH & FORM PO SCH (08:00)
--- NOTE | 2019-03-07 08:10 | NUR ---
Patient arrived from ED after receiving report from Kimberly ORELLANA. Patient was transferred to the bed and oriented to the room. Vital signs were obtained and telemetry monitoring was initiated. 2RN skin check and physical assessment was obtained.
--- NOTE | 2019-03-07 08:10 | NUR ---
Patient has call light, bed is locked and low, will continue to monitor.
[2019-03-07] MEDS: furosemide 20 MG/2 ML vial IV SCH ×2 (10:22→20:32)
[2019-03-07] MEDS: hydrALAZINE 25 MG tablet PO SCH ×2 (10:22→20:32)
[2019-03-07] MEDS: carVEDilol 12.5mg tablet PO SCH ×2 (10:23→20:32)
[2019-03-07] MEDS: amLODIPine 5mg tablet PO SCH (10:23)
[2019-03-07] MEDS ORDERED: glucagon, human recombinant 1mg kit SUBCUT PRN (10:40)
[2019-03-07] MEDS ORDERED: dextrose 50%-water 50ml dispensing syringe IV PRN ×2 (10:40)
[2019-03-07] MEDS ORDERED: MESSAGE TO PHARMACY PO ONE (10:40)
[2019-03-07] MEDS ORDERED: dextrose ORAL solution 15 GM/59 ML bottle PO PRN ×2 (10:40)
[2019-03-07] MEDS ORDERED: insulin Lispro (HumaLOG) vial - multi-dose SQ SCH (10:40)
[2019-03-07 11:00] VITALS: BP 118/73
[2019-03-07 15:00] VITALS: BP 159/73
[2019-03-07 18:00] VITALS: BP 180/72
--- NOTE | 2019-03-07 18:17 | NUR ---
Problems reprioritized. Patient report given, questions answered & plan of care reviewed with Lexi ORELLANA. Patient stable at transfer of care.
--- NOTE | 2019-03-07 18:47 | NUR ---
Patient in room PCU 3025. I have received report from Sintia ORELLANA and had the opportunity to ask questions and assume patient care.
[2019-03-07] MEDS: aspirin 81mg tab.chew PO SCH (20:33)
[2019-03-07] MEDS ORDERED: insulin glargine (Lantus) pen - multi-dose SQ SCH (21:00)
[2019-03-07 22:00] VITALS: BP 180/73
[2019-03-08] MEDS: heparin, porcine 5000 units/ml vial SQ SCH ×2 (00:35→07:54)
[2019-03-08 02:00] VITALS: BP 142/59
[2019-03-08] MEDS: ipratropium/albuterol 3ml nebule NEB SCH ×2 (03:53→07:41)
[2019-03-08 04:53] LABS: HEMATOCRIT 23.2 % (35.0-45.0); HEMOGLOBIN 7.8 g/dl (12.0-16.0); MEAN CORPUSCULAR HEMOGLOBIN 29.7 PG (27.0-31.0); MEAN CORPUSCULAR HGB CONC 33.8 g/dL (33.0-36.5); MEAN CORPUSCULAR VOLUME 87.6 FL (78-98); MEAN PLATELET VOLUME 6.3 FL (7.4-10.4); PLATELET COUNT 281 X10'3 (140-440); RED BLOOD COUNT 2.65 X10'6 (4.20-5.60); RED CELL DISTRIBUTION WIDTH 16.2 % (11.5-14.5); WHITE BLOOD COUNT 4.5 X10'3 (4.5-11.0)
[2019-03-08 05:11] LABS: ALBUMIN 2.8 G/DL (3.4-5.0); ANION GAP 10 (8-16); BLOOD UREA NITROGEN 53 MG/DL (7-18); BUN/CREATININE RATIO 17.8 (6.6-38.0); CALCIUM 8.4 MG/DL (8.5-10.1); CHLORIDE 112 MMOL/L (99-107); CREATININE 2.98 MG/DL (0.40-0.90); GLUCOSE 90 MG/DL (70-104); PHOSPHORUS 4.4 MG/DL (2.3-4.5); POTASSIUM 5.1 MMOL/L (3.5-5.1); SODIUM 142 MMOL/L (135-145); TOTAL CARBON DIOXIDE 20.5 MMOL/L (24-32); eGFR 19 ML/MIN
--- NOTE | 2019-03-08 06:26 | NUR ---
Problems reprioritized. Patient report given, questions answered & plan of care reviewed with Sintia ORELLANA.
--- NOTE | 2019-03-08 06:27 | NUR ---
Patient in room PCU 3025. I have received report from Lexi ORELLANA and had the opportunity to ask questions and assume patient care.
[2019-03-08 07:00] VITALS: BP 176/76
[2019-03-08] MEDS: furosemide 20 MG/2 ML vial IV SCH (07:52)
[2019-03-08] MEDS: hydrALAZINE 25 MG tablet PO SCH (07:52)
[2019-03-08] MEDS: carVEDilol 12.5mg tablet PO SCH (07:53)
[2019-03-08] MEDS: amLODIPine 5mg tablet PO SCH (07:53)
[2019-03-08] MEDS ORDERED: pantoprazole 40mg Tablet.DR PO SCH (10:00)
[2019-03-08] MEDS ORDERED: FURO-150 PO (11:26)
--- NOTE | 2019-03-08 15:13 | NUR ---
Patient discharged from unit at 1445. Discharge instructions and education packet reviewed before signing and being sent home with patient. PIV removed with cannula intact, telemetry monitoring removed and all belongings sent home with the patient. Patient was wheeled down by staff and left via private vehicle. RX was delivered [facility].
== END 2019-03-08 14:47 | disposition home or self-care (01) | DRG 194 ==
LOC: ER 14:59 → PCU 3S 03-07 07:12 → CMPBEDREQ 03-07 19:59
PROVIDERS: ADMIT Family Medicine; ATTEND Hospitalist
DX: I13.0 Hypertensive heart and chronic kidney disease with heart failure and stage 1 through stage 4 chronic kidney disease, or unspecified chronic kidney disease (principal); E11.22 Type 2 diabetes mellitus with diabetic chronic kidney disease; I27.20 Pulmonary hypertension, unspecified; E87.5 Hyperkalemia; N18.4 Chronic kidney disease, stage 4 (severe); J44.9 Chronic obstructive pulmonary disease, unspecified; I50.33 Acute on chronic diastolic (congestive) heart failure; Z87.11 Personal history of peptic ulcer disease; Z88.2 Allergy status to sulfonamides; Z83.3 Family history of diabetes mellitus; Z82.49 Family history of ischemic heart disease and other diseases of the circulatory system; Z80.0 Family history of malignant neoplasm of digestive organs; Z79.899 Other long term (current) drug therapy; Z79.82 Long term (current) use of aspirin
CPT/HCPCS: 36415; 71045; 80048; 80053; 82948; 83735; 83880; 84100; 84484; 85025; 85027; 85610; 87070; 93005; 94640; 94760; 96374; 96375; 96376; 99285; G0378; J1644; J1815; J1940

== ENCOUNTER 2019-07-04 11:30 | Inpatient (IN) | payer MEDICAID ==
[~2019-07-04] VITALS: Ht 154.9 cm; Wt 89.9 kg
[~2019-07-04 11:30] MED LIST changes: +FURO-150 PO; +GLIM1TAB3 PO; -GLIM1TAB46 PO
[2019-07-04 12:26] LABS: BASOPHILS % (AUTO) 0.6 % (0-1); EOSINOPHILS # (AUTO) 0.5 X10'3 (0-0.9); EOSINOPHILS % (AUTO) 8.6 % (0-6); HEMATOCRIT 23.2 % (35.0-45.0); HEMOGLOBIN 7.7 g/dl (12.0-16.0); LYMPHOCYTES # (AUTO) 0.8 X10'3 (1.1-4.8); LYMPHOCYTES % (AUTO) 14.2 % (21-51); MEAN CORPUSCULAR HEMOGLOBIN 30.5 PG (27.0-31.0); MEAN CORPUSCULAR HGB CONC 33.1 g/dL (33.0-36.5); MEAN CORPUSCULAR VOLUME 92.2 FL (78-98); MEAN PLATELET VOLUME 6.9 FL (7.4-10.4); MONOCYTES # (AUTO) 0.4 X10'3 (0-0.9); NEUTROPHILS # (AUTO) 3.7 X10'3 (1.8-7.7); NEUTROPHILS % (AUTO) 68.6 % (42-75); PLATELET COUNT 227 X10'3 (140-440); RED BLOOD COUNT 2.51 X10'6 (4.20-5.60); RED CELL DISTRIBUTION WIDTH 16.5 % (11.5-14.5); WHITE BLOOD COUNT 5.4 X10'3 (4.5-11.0)
[2019-07-04 12:54] LABS: ALANINE AMINOTRANSFERASE 68 U/L (12-78); ALBUMIN 3.5 G/DL (3.4-5.0); ALBUMIN/GLOBULIN RATIO 0.9 (1.1-1.5); ALKALINE PHOSPHATASE 67 IU/L (46-116); ANION GAP 9 (8-16); ASPARTATE AMINO TRANSFERASE 35 U/L (10-37); BILIRUBIN,TOTAL 0.3 MG/DL (0.1-1.0); BLOOD UREA NITROGEN 56 MG/DL (7-18); BUN/CREATININE RATIO 17.4 (6.6-38.0); CALCIUM 8.2 MG/DL (8.5-10.1); CHLORIDE 114 MMOL/L (99-107); CREATININE 3.22 MG/DL (0.40-0.90); GLUCOSE 144 MG/DL (70-104); MAGNESIUM 2.3 MG/DL (1.5-2.4); SODIUM 139 MMOL/L (135-145); TOTAL CARBON DIOXIDE 16.2 MMOL/L (24-32); TOTAL PROTEIN 7.3 G/DL (6.4-8.2); eGFR 18 ML/MIN
[2019-07-04 12:57] LABS: POTASSIUM 6.5 MMOL/L (3.5-5.1)
[2019-07-04] MEDS ORDERED: sodium polystyrene sulfonate 15gm/60ml oral suspension PO ONE (13:05)
[2019-07-04] MEDS ORDERED: calcium gluconate inj. 1 GM in normal saline 100ml IV soln 100 ML IV ONE (13:05)
[2019-07-04] MEDS ORDERED: dextrose 50%-water 50ml dispensing syringe IV ONE (13:05)
[2019-07-04] MEDS ORDERED: insulin regular, human 10 units/0.1 ml syringe IV ONE (13:05)
[2019-07-04] MEDS ORDERED: levoFLOXACIN-Levaquin 750MG/D5 150 ML IV ONE (13:20)
[2019-07-04] MEDS ORDERED: furosemide 40mg/4ml inj IV ONE (13:20)
[2019-07-04] MEDS ORDERED: mag hydrox/Alum hydrox/simeth 30ml oral suspension PO PRN (14:30)
[2019-07-04] MEDS ORDERED: acetaminophen 325mg tablet PO PRN ×2 (14:30)
[2019-07-04] MEDS ORDERED: ondansetron/PF 4mg/2ml inj IV PRN (14:30)
[2019-07-04] MEDS ORDERED: HYDROcodone/acetaminophen 10/325mg tab PO PRN (14:30)
[2019-07-04] MEDS ORDERED: magnesium Cl slow-release 64mg tablet PO PRN (14:30)
[2019-07-04] MEDS ORDERED: magnesium 2GM in 50ml NS 50 ML IV PRN (14:30)
[2019-07-04] MEDS ORDERED: HYDROcodone/acetaminophen 5mg/325mg tablet PO PRN (14:30)
[2019-07-04] MEDS ORDERED: magnesium hydroxide 30ml (MOM) UD suspension PO PRN (14:30)
[2019-07-04] MEDS ORDERED: magnesium 4gm in 100ml NS 100 ML IV PRN (14:30)
[2019-07-04] MEDS ORDERED: FAMO20TA8 PO (14:46)
[2019-07-04] MEDS ORDERED: MONT10TA24 PO (14:47)
[2019-07-04] MEDS ORDERED: ISOS120T13 PO (14:48)
[2019-07-04] MEDS ORDERED: HYDR100T27 PO (14:49)
[2019-07-04 14:55] LABS: PHOSPHORUS 4.2 MG/DL (2.3-4.5)
[2019-07-04] MEDS: furosemide 40mg/4ml inj IV SCH (20:08)
[2019-07-04] MEDS: heparin, porcine 5000 units/ml vial SQ SCH (20:10)
[2019-07-04] MEDS: carVEDilol 12.5mg tablet PO SCH (20:10)
[2019-07-04] MEDS: montelukast 10mg tablet PO SCH (20:10)
[2019-07-04] MEDS: aspirin 81mg tab.chew PO SCH (20:11)
[2019-07-04] MEDS ORDERED: glucagon, human recombinant 1mg kit SUBCUT PRN (20:40)
[2019-07-04] MEDS ORDERED: insulin Lispro (HumaLOG) vial - multi-dose SQ SCH (20:40)
[2019-07-04] MEDS ORDERED: dextrose 50%-water 50ml dispensing syringe IV PRN ×2 (20:40)
[2019-07-04] MEDS ORDERED: dextrose ORAL solution 15 GM/59 ML bottle PO PRN ×2 (20:40)
[2019-07-04] MEDS ORDERED: MESSAGE TO PHARMACY PO ONE (20:40)
[2019-07-04 20:58] LABS: HEMOGLOBIN A1C 5.5 % (4.5-6.2)
[2019-07-04] MEDS ORDERED: temazepam 15mg capsule PO PRN (21:00)
[2019-07-04 21:05] VITALS: BP 155/58
--- NOTE | 2019-07-04 21:05 | NUR ---
PATIENT ADMITTED TO ROOM 356B FROM ER FOR CHF, HYPERKALEMIA, PNEUMONIA? PLACED COMFORTABLE IN BED. VITAL SIGNS TAKEN AND RECORDED.
[2019-07-04] MEDS: hydrALAZINE 25 MG tablet PO SCH (22:26)
[2019-07-04] MEDS: insulin glargine (Lantus) pen - multi-dose SQ SCH (22:28)
[2019-07-05] VITALS: BP 146/64
[2019-07-05 05:50] LABS: HEMOGLOBIN 7.2 g/dl (12.0-16.0); MEAN CORPUSCULAR HEMOGLOBIN 30.7 PG (27.0-31.0); MEAN CORPUSCULAR HGB CONC 33.7 g/dL (33.0-36.5); MEAN CORPUSCULAR VOLUME 91.1 FL (78-98); MEAN PLATELET VOLUME 6.8 FL (7.4-10.4); PLATELET COUNT 229 X10'3 (140-440); RED BLOOD COUNT 2.34 X10'6 (4.20-5.60); RED CELL DISTRIBUTION WIDTH 16.4 % (11.5-14.5); WHITE BLOOD COUNT 5.1 X10'3 (4.5-11.0)
[2019-07-05 05:56] LABS: ALBUMIN 3.2 G/DL (3.4-5.0); ANION GAP 13 (8-16); BLOOD UREA NITROGEN 56 MG/DL (7-18); BUN/CREATININE RATIO 17.4 (6.6-38.0); CALCIUM 8.3 MG/DL (8.5-10.1); CHLORIDE 114 MMOL/L (99-107); CHOL/HDL RATIO 1.8 (0.00-4.99); CHOLESTEROL 146 MG/DL (0-200); CREATININE 3.22 MG/DL (0.40-0.90); GLUCOSE 63 MG/DL (70-104); HDL CHOLESTEROL 83 MG/DL (35-60); LDL CHOLESTEROL 46 MG/DL (50-100); MAGNESIUM 2.1 MG/DL (1.5-2.4); POTASSIUM 5.2 MMOL/L (3.5-5.1); SODIUM 144 MMOL/L (135-145); TOTAL CARBON DIOXIDE 17.2 MMOL/L (24-32); TRIGLYCERIDES 57 MG/DL (20-135); eGFR 18 ML/MIN
--- NOTE | 2019-07-05 06:30 | NUR ---
Problems reprioritized. Patient report given, questions answered & plan of care reviewed with HANNAH ORELLANA.
[2019-07-05 06:40] LABS: HEMATOCRIT 21.3 % (35.0-45.0)
[2019-07-05 07:10] VITALS: BP 145/62
--- NOTE | 2019-07-05 08:04 | NUR ---
PATIENT REFUSED PO GLUCOSE DRINK FOR BLOOD SUGAR LEVEL OF 69. SAID SHE WILL EAT HER BREAKFAST TRAY AND I CAN RETEST HER IN 15MIN.
[2019-07-05] MEDS: famotidine 20mg tablet PO SCH (08:13)
[2019-07-05] MEDS: levoFLOXACIN-Levaquin 500mg/D5 100 ML IV SCH (08:13)
[2019-07-05] MEDS: isosorbide mononitrate 30mg tab.SR.24H PO SCH (08:14)
[2019-07-05] MEDS: heparin, porcine 5000 units/ml vial SQ SCH ×2 (08:14→21:20)
[2019-07-05] MEDS: furosemide 40mg/4ml inj IV SCH ×2 (08:14→21:20)
[2019-07-05] MEDS: hydrALAZINE 25 MG tablet PO SCH ×3 (08:14→21:22)
[2019-07-05] MEDS: carVEDilol 12.5mg tablet PO SCH ×2 (08:14→21:21)
--- NOTE | 2019-07-05 11:31 | NUR ---
Diabetes survival skills given and reviewed with patient. All questions answered.
[2019-07-05 11:48] VITALS: BP 104/53
--- NOTE | 2019-07-05 18:13 | NUR ---
Problems reprioritized. Patient report given, questions answered & plan of care reviewed with ESTEBAN Fu.
--- NOTE | 2019-07-05 18:47 | NUR ---
Patient in room [facility] 356. I have received report from Steph ORELLANA and had the opportunity to ask questions and assume patient care.
[2019-07-05 20:00] VITALS: BP 165/69
[2019-07-05] MEDS: insulin glargine (Lantus) pen - multi-dose SQ SCH (21:00)
[2019-07-05] MEDS: montelukast 10mg tablet PO SCH (21:21)
[2019-07-05] MEDS: aspirin 81mg tab.chew PO SCH (21:21)
[2019-07-06 00:11] VITALS: BP 136/52
[2019-07-06 04:55] LABS: HEMATOCRIT 22.4 % (35.0-45.0); HEMOGLOBIN 7.4 g/dl (12.0-16.0); MEAN CORPUSCULAR HEMOGLOBIN 30.3 PG (27.0-31.0); MEAN CORPUSCULAR HGB CONC 33.1 g/dL (33.0-36.5); MEAN CORPUSCULAR VOLUME 91.4 FL (78-98); MEAN PLATELET VOLUME 6.5 FL (7.4-10.4); PLATELET COUNT 244 X10'3 (140-440); RED BLOOD COUNT 2.45 X10'6 (4.20-5.60); RED CELL DISTRIBUTION WIDTH 16.8 % (11.5-14.5); WHITE BLOOD COUNT 4.5 X10'3 (4.5-11.0)
[2019-07-06 05:26] LABS: ALBUMIN 3.1 G/DL (3.4-5.0); ANION GAP 13 (8-16); BLOOD UREA NITROGEN 60 MG/DL (7-18); BUN/CREATININE RATIO 17.6 (6.6-38.0); CHLORIDE 111 MMOL/L (99-107); GLUCOSE 85 MG/DL (70-104); PHOSPHORUS 4.5 MG/DL (2.3-4.5); POTASSIUM 4.8 MMOL/L (3.5-5.1); SODIUM 142 MMOL/L (135-145); TOTAL CARBON DIOXIDE 18.4 MMOL/L (24-32); eGFR 17 ML/MIN
--- NOTE | 2019-07-06 06:41 | NUR ---
Problems reprioritized. Patient report given, questions answered & plan of care reviewed with
[2019-07-06 07:00] VITALS: BP 152/61
--- NOTE | 2019-07-06 07:00 | NUR ---
Patient in room [facility] 356. I have received report from Nickie ORELLANA and had the opportunity to ask questions and assume patient care.
[2019-07-06] MEDS: famotidine 20mg tablet PO SCH (07:38)
[2019-07-06] MEDS: isosorbide mononitrate 30mg tab.SR.24H PO SCH (07:38)
[2019-07-06] MEDS: hydrALAZINE 25 MG tablet PO SCH ×2 (07:38→13:28)
[2019-07-06] MEDS: carVEDilol 12.5mg tablet PO SCH (07:38)
[2019-07-06] MEDS: furosemide 40mg/4ml inj IV SCH (07:38)
[2019-07-06] MEDS: levoFLOXACIN-Levaquin 500mg/D5 100 ML IV SCH (07:38)
[2019-07-06] MEDS: heparin, porcine 5000 units/ml vial SQ SCH (07:39)
[2019-07-06 11:00] VITALS: BP 121/55
[2019-07-06] MEDS ORDERED: LEVO500T2 PO (13:44)
[2019-07-06] MEDS ORDERED: FURO-150 PO (13:50)
--- NOTE | 2019-07-06 17:21 | NUR ---
patient appears stable. seen by dr West, is for discharge. All DC instructions given to patient . meds delivered by [facility]. patient appears stable for DC. DC home via private car with friends home.
== END 2019-07-06 16:25 | disposition home or self-care (01) | DRG 139 ==
LOC: ER 11:31 → EDBEDREQSVC 18:14 → OBSVTOIN 21:10 → SUR 3N 21:10 → CMPBEDREQ 21:28
PROVIDERS: ADMIT Family Medicine; ATTEND Family Medicine
DX: J18.9 Pneumonia, unspecified organism (principal); I50.33 Acute on chronic diastolic (congestive) heart failure; E11.22 Type 2 diabetes mellitus with diabetic chronic kidney disease; E11.36 Type 2 diabetes mellitus with diabetic cataract; N18.4 Chronic kidney disease, stage 4 (severe); I13.0 Hypertensive heart and chronic kidney disease with heart failure and stage 1 through stage 4 chronic kidney disease, or unspecified chronic kidney disease; E87.5 Hyperkalemia; D64.9 Anemia, unspecified; Z79.899 Other long term (current) drug therapy; Z85.028 Personal history of other malignant neoplasm of stomach; Z82.49 Family history of ischemic heart disease and other diseases of the circulatory system; Z83.3 Family history of diabetes mellitus; Z87.11 Personal history of peptic ulcer disease; Z79.82 Long term (current) use of aspirin; Z79.84 Long term (current) use of oral hypoglycemic drugs; Z88.2 Allergy status to sulfonamides
CPT/HCPCS: 36415; 71045; 80048; 80053; 80061; 82948; 83036; 83605; 83735; 83880; 84100; 84132; 84145; 84484; 85025; 85027; 87040; 87081; 93005; 93306; 96365; 96366; 96375; 99285; G0378; J0610; J1644; J1815; J1940; J1956

== ENCOUNTER 2020-06-15 20:24 | Inpatient (IN) | payer MEDICAID ==
[~2020-06-15] VITALS: Ht 154.9 cm; Wt 79.1 kg
[~2020-06-15 20:24] MED LIST changes: +AMA1T PO; +FAMO20TA8 PO; -GLIM1TAB3 PO; -HYDR-4069 PO; +HYDR100T27 PO; +ISOS120T13 PO; +MONT10TA26 PO; -OMEP20TA23 PO
[2020-06-15 21:03] LABS: BASOPHILS # (AUTO) 0.1 X10'3 (0-0.2); EOSINOPHILS # (AUTO) 0.3 X10'3 (0-0.9); EOSINOPHILS % (AUTO) 4.8 % (0-6); HEMOGLOBIN 7.4 g/dl (12.0-16.0); LYMPHOCYTES % (AUTO) 17.6 % (21-51); MEAN CORPUSCULAR HEMOGLOBIN 32.1 PG (27.0-31.0); MEAN CORPUSCULAR VOLUME 94.5 FL (78-98); MEAN PLATELET VOLUME 7.1 FL (7.4-10.4); MONOCYTES # (AUTO) 0.5 X10'3 (0-0.9); MONOCYTES % (AUTO) 8.1 % (2-12); NEUTROPHILS # (AUTO) 3.9 X10'3 (1.8-7.7); NEUTROPHILS % (AUTO) 68.5 % (42-75); PLATELET COUNT 257 X10'3 (140-440); RED BLOOD COUNT 2.29 X10'6 (4.20-5.60); RED CELL DISTRIBUTION WIDTH 15.4 % (11.5-14.5); WHITE BLOOD COUNT 5.6 X10'3 (4.5-11.0)
[2020-06-15 21:08] LABS: HEMATOCRIT 21.7 % (35.0-45.0)
[2020-06-15 21:22] LABS: ALANINE AMINOTRANSFERASE 60 U/L (12-78); ALBUMIN 3.5 G/DL (3.4-5.0); ALBUMIN/GLOBULIN RATIO 0.9 (1.1-1.5); ALKALINE PHOSPHATASE 47 IU/L (46-116); ANION GAP 10 (8-16); ASPARTATE AMINO TRANSFERASE 83 U/L (10-37); BILIRUBIN,TOTAL 0.3 MG/DL (0.1-1.0); BLOOD UREA NITROGEN 64 MG/DL (7-18); BUN/CREATININE RATIO 13.3 (6.6-38.0); CALCIUM 8.3 MG/DL (8.5-10.1); CHLORIDE 104 MMOL/L (99-107); CREATININE 4.82 MG/DL (0.40-0.90); GLUCOSE 249 MG/DL (70-104); SODIUM 134 MMOL/L (135-145); TOTAL CARBON DIOXIDE 19.6 MMOL/L (24-32); TOTAL PROTEIN 7.2 G/DL (6.4-8.2); eGFR 11 ML/MIN
[2020-06-15 21:27] LABS: POTASSIUM 7.1 MMOL/L (3.5-5.1)
[2020-06-15] MEDS ORDERED: CALCIUM GLUC 1gm/50ml NACL,iso 50 ML IV ONE (21:45)
[2020-06-15] MEDS ORDERED: sodium polystyrene sulfonate 15gm/60ml oral suspension PO ONE (21:45)
[2020-06-15] MEDS ORDERED: albuterol 2.5 MG/3 ML nebule NEB ONE (21:45)
[2020-06-15] MEDS ORDERED: calcium gluconate inj. 1 GM in normal saline 100ml IV soln 100 ML IV ONE (21:45)
[2020-06-15] MEDS ORDERED: insulin regular, human U-100 3ml vial - multi-dose IV ONE (21:45)
[2020-06-15] MEDS ORDERED: dextrose 50%-water 50ml dispensing syringe IV ONE (21:45)
[2020-06-15] MEDS ORDERED: acetaminophen 325mg tablet PO PRN ×2 (23:45)
[2020-06-15] MEDS ORDERED: acetaminophen 650mg rectal suppository RC PRN (23:45)
[2020-06-15] MEDS ORDERED: MESSAGE TO PHARMACY PO ONE (23:45)
[2020-06-15] MEDS ORDERED: glucagon, human recombinant 1mg kit SUBCUT PRN (23:45)
[2020-06-15] MEDS ORDERED: ondansetron/PF 4mg/2ml inj IV PRN (23:45)
[2020-06-15] MEDS ORDERED: dextrose ORAL solution 15 GM/59 ML bottle PO PRN ×2 (23:45)
[2020-06-15] MEDS ORDERED: dextrose 50%-water 50ml dispensing syringe IV PRN ×2 (23:45)
[2020-06-15] MEDS ORDERED: insulin Lispro (HumaLOG) vial - multi-dose SQ SCH (23:45)
[2020-06-15] MEDS ORDERED: furosemide 40mg/4ml inj IV ONE (23:45)
[2020-06-16] VITALS (12 sets, daily range): BP systolic 125–181; BP diastolic 46–80
[2020-06-16 00:42] LABS: ALBUMIN 3.9 G/DL (3.4-5.0); ANION GAP 12 (8-16); BLOOD UREA NITROGEN 65 MG/DL (7-18); BUN/CREATININE RATIO 12.9 (6.6-38.0); CALCIUM 8.9 MG/DL (8.5-10.1); CHLORIDE 104 MMOL/L (99-107); CREATININE 5.03 MG/DL (0.40-0.90); GLUCOSE 167 MG/DL (70-104); SODIUM 136 MMOL/L (135-145); TOTAL CARBON DIOXIDE 19.9 MMOL/L (24-32); eGFR 11 ML/MIN
[2020-06-16 04:02] LABS: BASOPHILS % (AUTO) 0.7 % (0-1); EOSINOPHILS # (AUTO) 0.1 X10'3 (0-0.9); EOSINOPHILS % (AUTO) 1.9 % (0-6); HEMOGLOBIN 7.7 g/dl (12.0-16.0); LYMPHOCYTES % (AUTO) 15.1 % (21-51); MEAN CORPUSCULAR HEMOGLOBIN 31.6 PG (27.0-31.0); MEAN CORPUSCULAR HGB CONC 33.4 g/dL (33.0-36.5); MEAN CORPUSCULAR VOLUME 94.4 FL (78-98); MEAN PLATELET VOLUME 7.3 FL (7.4-10.4); MONOCYTES # (AUTO) 0.5 X10'3 (0-0.9); MONOCYTES % (AUTO) 6.8 % (2-12); NEUTROPHILS # (AUTO) 5.2 X10'3 (1.8-7.7); NEUTROPHILS % (AUTO) 75.5 % (42-75); PLATELET COUNT 281 X10'3 (140-440); RED BLOOD COUNT 2.44 X10'6 (4.20-5.60); WHITE BLOOD COUNT 6.8 X10'3 (4.5-11.0)
[2020-06-16 04:10] LABS: ALANINE AMINOTRANSFERASE 84 U/L (12-78); ALBUMIN 3.7 G/DL (3.4-5.0); ALBUMIN/GLOBULIN RATIO 0.9 (1.1-1.5); ALKALINE PHOSPHATASE 53 IU/L (46-116); ANION GAP 13 (8-16); ASPARTATE AMINO TRANSFERASE 90 U/L (10-37); BILIRUBIN,TOTAL 0.3 MG/DL (0.1-1.0); BLOOD UREA NITROGEN 65 MG/DL (7-18); BUN/CREATININE RATIO 13.8 (6.6-38.0); CALCIUM 8.8 MG/DL (8.5-10.1); CHLORIDE 105 MMOL/L (99-107); GLUCOSE 111 MG/DL (70-104); MAGNESIUM 1.9 MG/DL (1.5-2.4); PHOSPHORUS 4.8 MG/DL (2.3-4.5); POTASSIUM 5.3 MMOL/L (3.5-5.1); SODIUM 140 MMOL/L (135-145); TOTAL CARBON DIOXIDE 22.1 MMOL/L (24-32); eGFR 11 ML/MIN
--- NOTE | 2020-06-16 06:26 | NUR ---
Problems reprioritized. Patient report given, questions answered & plan of care reviewed with Art RN.
--- NOTE | 2020-06-16 07:30 | NUR ---
Pt blood glucose was 49. Treating per orders
[2020-06-16] MEDS: docusate sod 100mg capsule PO SCH ×2 (08:02→20:44)
[2020-06-16] MEDS: pantoprazole 40mg Tablet.DR PO SCH (08:02)
[2020-06-16 09:20] LABS: PARTIAL THROMBOPLASTIN TIME 31 SECONDS (22-32)
--- NOTE | 2020-06-16 09:31 | NUR ---
Nutrition consult "DM, CKD, hyperkalemia": Pt admit w/ acute on chronic renal failure hx CKD IV possibly nearing need for HD per EMR. Hx T2DM A1C 5.5 w/ Glu WNL so far; not appropriate for DM ed at this time. K 5.3 w/ Phos 4.8 currently placed on renal diet pending PO. Hx poor appetite [employer] supplementing w/ Glucerna's at home per EMR; ensure high protein TIDWM recommended given lower electrolyte content; MD notified. Will monitor for PO/ONS tolerance/acceptance; if to start long-term HD would benefit from ESRD ed this admit. Would follow routine outpatient RD at dialysis center if long-term HD. Will continue to monitor for renal function and possible ed needs. Addendum: 06/16/20 at [address] Amended: Links added.
[2020-06-16] MEDS: levoTHYROXINE 25mcg tablet PO SCH (09:34)
--- NOTE | 2020-06-16 10:55 | NUR ---
Pt states that she is missing a bright-red cane. Their is no such item on her belongings. I called down to ED, and they are looking for it as well. Pt came in by ambulance.
--- NOTE | 2020-06-16 11:56 | NUR ---
received report from ICU nurse ART, RN
--- NOTE | 2020-06-16 12:04 | NUR ---
Report called to Surgical, pt delivered to 346B. All known pt property transferred with pt.
--- NOTE | 2020-06-16 13:00 | NUR ---
RIAZ Walsh made aware of pt issues with hypertension in ICU and patient current bp of 176/61, PA will resume patient BP meds this evening.
--- NOTE | 2020-06-16 18:00 | NUR ---
Patient in room [facility]SHLEY 346. I have received report from Laurel ORELLANA and had the opportunity to ask questions and assume patient care. Addendum: 06/17/20 at 0746 by Ayleen Wesley RN Amended: Links added.
--- NOTE | 2020-06-16 18:19 | NUR ---
Problems reprioritized. Patient report given, questions answered & plan of care reviewed with ESTEBAN Abbasi.
[2020-06-16] MEDS: carVEDilol 12.5mg tablet PO SCH (20:45)
[2020-06-16] MEDS: insulin glargine (Lantus) pen - multi-dose SQ SCH (20:53)
[2020-06-16] MEDS: montelukast 10mg tablet PO SCH (20:59)
[2020-06-17] VITALS (7 sets, daily range): BP systolic 168–200; BP diastolic 67–90
[2020-06-17 05:18] LABS: EOSINOPHILS # (AUTO) 0.3 X10'3 (0-0.9); EOSINOPHILS % (AUTO) 6.9 % (0-6); HEMATOCRIT 24.6 % (35.0-45.0); HEMOGLOBIN 8.2 g/dl (12.0-16.0); LYMPHOCYTES # (AUTO) 1.3 X10'3 (1.1-4.8); LYMPHOCYTES % (AUTO) 27.7 % (21-51); MEAN CORPUSCULAR HEMOGLOBIN 31.3 PG (27.0-31.0); MEAN CORPUSCULAR HGB CONC 33.3 g/dL (33.0-36.5); MEAN PLATELET VOLUME 7.1 FL (7.4-10.4); MONOCYTES # (AUTO) 0.5 X10'3 (0-0.9); MONOCYTES % (AUTO) 11.1 % (2-12); NEUTROPHILS # (AUTO) 2.5 X10'3 (1.8-7.7); NEUTROPHILS % (AUTO) 53.3 % (42-75); PLATELET COUNT 273 X10'3 (140-440); RED BLOOD COUNT 2.62 X10'6 (4.20-5.60); RED CELL DISTRIBUTION WIDTH 14.5 % (11.5-14.5); WHITE BLOOD COUNT 4.7 X10'3 (4.5-11.0)
[2020-06-17 05:27] LABS: ALANINE AMINOTRANSFERASE 52 U/L (12-78); ALBUMIN 3.1 G/DL (3.4-5.0); ALBUMIN/GLOBULIN RATIO 0.8 (1.1-1.5); ALKALINE PHOSPHATASE 49 IU/L (46-116); ANION GAP 12 (8-16); ASPARTATE AMINO TRANSFERASE 39 U/L (10-37); BILIRUBIN,TOTAL 0.3 MG/DL (0.1-1.0); BLOOD UREA NITROGEN 55 MG/DL (7-18); BUN/CREATININE RATIO 13.6 (6.6-38.0); CALCIUM 8.4 MG/DL (8.5-10.1); CHLORIDE 108 MMOL/L (99-107); CREATININE 4.05 MG/DL (0.40-0.90); GLUCOSE 71 MG/DL (70-104); MAGNESIUM 1.8 MG/DL (1.5-2.4); PHOSPHORUS 4.3 MG/DL (2.3-4.5); POTASSIUM 4.7 MMOL/L (3.5-5.1); SODIUM 142 MMOL/L (135-145); TOTAL CARBON DIOXIDE 21.9 MMOL/L (24-32); TOTAL PROTEIN 7.1 G/DL (6.4-8.2); eGFR 14 ML/MIN
--- NOTE | 2020-06-17 05:30 | NUR ---
pt. slept well with no c/o pain. Pt voided adequatelx 2 Addendum: 06/17/20 at 0759 by Ayleen Wesley RN Amended: Links added.
--- NOTE | 2020-06-17 05:30 | NUR ---
Pt. slept well with no c/o pain this shift. 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 to call with assit to the bathroom. Pt. verbalized understanding. Pt. states she has cataract appointment after discharge. Pt voided x 2 this shift. Addendum: 06/17/20 at 0759 by Ayleen Wesley RN Amended: Links added.
--- NOTE | 2020-06-17 06:00 | NUR ---
Patient in room [facility]LEY 350. I have received report from ESTEBAN Abbasi and had the opportunity to ask questions and assume patient care.
[2020-06-17] MEDS: isosorbide mononitrate 30mg tab.SR.24H PO SCH (07:06)
[2020-06-17] MEDS: carVEDilol 12.5mg tablet PO SCH ×2 (07:06→19:59)
[2020-06-17] MEDS: furosemide 20MG tablet PO SCH (07:07)
[2020-06-17] MEDS: pantoprazole 40mg Tablet.DR PO SCH (07:07)
[2020-06-17] MEDS: levoTHYROXINE 25mcg tablet PO SCH (07:07)
--- NOTE | 2020-06-17 07:12 | NUR ---
Patient vitals were being taken, showed 209/100 automatic cuff, rechecked manually to be 200/90 HR 80. MD Marroquin was called and informed of the pt's Bp and headache. Asked if would like to order any IV hydralazine, stated to give the patient's oral BP meds at this time.
[2020-06-17] MEDS ORDERED: DILT240C52 PO (07:53)
[2020-06-17] MEDS: docusate sod 100mg capsule PO SCH ×2 (08:00→19:59)
[2020-06-17] MEDS ORDERED: diltiazem 30mg tablet PO ONE (08:10)
[2020-06-17] MEDS ORDERED: hydrOXYzine 25 MG tablet PO PRN (08:20)
[2020-06-17] MEDS ORDERED: nitroGLYCERIN 1gm ointment UD TP ONE (08:35)
--- NOTE | 2020-06-17 09:02 | NUR ---
Patient denied taking any medications such as viagra, levitra, or cialis prior to nitro paste administration. Bp immediately prior to administering was 180/90 manual, left arm, supine. HR 70.
--- NOTE | 2020-06-17 09:39 | NUR ---
Bp is now 170/80, will continue to monitor.
[2020-06-17] MEDS ORDERED: hydrALAZINE 25 MG tablet PO ONE (11:35)
--- NOTE | 2020-06-17 11:41 | NUR ---
MD called regarding patient Bp of 179/87, asked if he would like to give patient home med of 100mg of hydralazine and restart as scheduled, MD okayed.
[2020-06-17] MEDS ORDERED: NIFE60TA79 PO (11:51)
[2020-06-17] MEDS ORDERED: ATOR10TA70 PO (11:51)
--- NOTE | 2020-06-17 13:11 | NUR ---
Rechecked pt Bp after restarting patient home hydralazine, manual bp showed 170/80 supine left arm. Called MD Marroquin regarding pt bp still being elevated in addition to pharmacy asking me to had MD address Med rec as only some meds have been restarted. MD stated he will address all patient problems when he sees the patient tomorrow and to not contact him again for the duration of the shift. Will reassess pt bp prior to next dose of hydralazine.
[2020-06-17] MEDS ORDERED: hydrALAZINE 25 MG tablet PO SCH (15:15)
[2020-06-17] MEDS: hydrALAZINE 25 MG tablet PO SCH (15:59)
--- NOTE | 2020-06-17 18:00 | NUR ---
Problems reprioritized. Patient report given, questions answered & plan of care reviewed with ESTEBAN Abbasi.
--- NOTE | 2020-06-17 18:00 | NUR ---
Patient in room [facility] 350. I have received report from Laurel ORELLANA and had the opportunity to ask questions and assume patient care. Addendum: 06/17/20 at 1851 by Ayleen Wesley RN Amended: Links added.
[2020-06-17] MEDS ORDERED: diltiazem CD 120mg capsule (once-daily) PO SCH (20:00)
[2020-06-17] MEDS: insulin glargine (Lantus) pen - multi-dose SQ SCH (20:00)
--- NOTE | 2020-06-17 20:00 | NUR ---
Pt. awake A & O with no c/o pain. Pt. voiding adequately; [address] process in [address] as ordered. Call light within reach. Addendum: 06/17/20 at 2220 by Ayleen Wesley RN Amended: Links added.
[2020-06-17] MEDS: montelukast 10mg tablet PO SCH (20:09)
[2020-06-17] MEDS ORDERED: lactulose 20gm/30ml cup PO PRN (23:45)
[2020-06-18] VITALS: BP 160/63
[2020-06-18] MEDS: hydrALAZINE 25 MG tablet PO SCH ×2 (01:53→07:48)
[2020-06-18 05:41] LABS: BASOPHILS % (AUTO) 0.9 % (0-1); EOSINOPHILS # (AUTO) 0.3 X10'3 (0-0.9); EOSINOPHILS % (AUTO) 7.5 % (0-6); HEMATOCRIT 25.2 % (35.0-45.0); HEMOGLOBIN 8.6 g/dl (12.0-16.0); LYMPHOCYTES # (AUTO) 1.3 X10'3 (1.1-4.8); MEAN CORPUSCULAR HEMOGLOBIN 31.7 PG (27.0-31.0); MEAN CORPUSCULAR HGB CONC 34.1 g/dL (33.0-36.5); MEAN PLATELET VOLUME 7.2 FL (7.4-10.4); MONOCYTES # (AUTO) 0.6 X10'3 (0-0.9); MONOCYTES % (AUTO) 13.3 % (2-12); NEUTROPHILS # (AUTO) 2.1 X10'3 (1.8-7.7); NEUTROPHILS % (AUTO) 48.3 % (42-75); PLATELET COUNT 275 X10'3 (140-440); RED BLOOD COUNT 2.71 X10'6 (4.20-5.60); RED CELL DISTRIBUTION WIDTH 14.9 % (11.5-14.5); WHITE BLOOD COUNT 4.3 X10'3 (4.5-11.0)
[2020-06-18 05:55] LABS: ALANINE AMINOTRANSFERASE 44 U/L (12-78); ALBUMIN 3.1 G/DL (3.4-5.0); ALBUMIN/GLOBULIN RATIO 0.8 (1.1-1.5); ALKALINE PHOSPHATASE 48 IU/L (46-116); ANION GAP 12 (8-16); ASPARTATE AMINO TRANSFERASE 24 U/L (10-37); BILIRUBIN,TOTAL 0.3 MG/DL (0.1-1.0); BLOOD UREA NITROGEN 55 MG/DL (7-18); BUN/CREATININE RATIO 13.8 (6.6-38.0); CALCIUM 8.6 MG/DL (8.5-10.1); CHLORIDE 105 MMOL/L (99-107); CREATININE 3.98 MG/DL (0.40-0.90); GLUCOSE 87 MG/DL (70-104); MAGNESIUM 1.6 MG/DL (1.5-2.4); POTASSIUM 4.4 MMOL/L (3.5-5.1); SODIUM 137 MMOL/L (135-145); TOTAL CARBON DIOXIDE 19.8 MMOL/L (24-32); TOTAL PROTEIN 7.2 G/DL (6.4-8.2); eGFR 14 ML/MIN
--- NOTE | 2020-06-18 06:00 | NUR ---
Problems reprioritized. Patient report given, questions answered & plan of care reviewed with Stacey ORELLANA. Addendum: 06/18/20 at 0710 by Ayleen Wesley RN Amended: Links added.
--- NOTE | 2020-06-18 06:44 | NUR ---
Patient in room [facility] 350. I have received report from ESTEBAN BROWN and had the opportunity to ask questions and assume patient care.
[2020-06-18 07:00] VITALS: BP 169/62
[2020-06-18] MEDS: isosorbide mononitrate 30mg tab.SR.24H PO SCH (07:47)
[2020-06-18 07:48] VITALS: BP_SYST 169
[2020-06-18] MEDS: pantoprazole 40mg Tablet.DR PO SCH (07:48)
[2020-06-18] MEDS: docusate sod 100mg capsule PO SCH (07:48)
[2020-06-18] MEDS: furosemide 20MG tablet PO SCH (07:48)
[2020-06-18] MEDS: carVEDilol 12.5mg tablet PO SCH (07:48)
[2020-06-18] MEDS: levoTHYROXINE 25mcg tablet PO SCH (07:48)
[2020-06-18] MEDS ORDERED: diltiazem CD 120mg capsule (once-daily) PO SCH (08:00)
[2020-06-18] MEDS ORDERED: NIFEDIPINE PO SCH (08:00)
[2020-06-18] MEDS ORDERED: LEVO25TA7 PO (08:02)
--- NOTE | 2020-06-18 09:11 | NUR ---
railroad signal technician at bedside.
--- NOTE | 2020-06-18 09:52 | NUR ---
24hour urine collection was completed at 0935 and sent to lab.
[2020-06-18 10:15] LABS: UREA NITROGEN 24HR,URINE 9.6 GM/24HR (7-20)
--- NOTE | 2020-06-18 10:25 | NUR ---
Patient alert and oriented and in no apparent acute distress with no complaints. Discussed with patient discharge instructions, new meds and med changes. patient verbalizes understanding of teaching. Patient states cane has been missing since admit date. Called down to ED and ED cannot find. Haley MALONE notified and stated she has an extra cane patient can have. Cane given to patient. Home meds held in pharmacy given back to patient. Patient is down to nuc med for renal scan. Patient ready for dc when completed.
--- NOTE | 2020-06-18 12:02 | NUR ---
patient returned from [facility] with no complaints. patient dc'd with all personal belongings. Addendum: 06/18/20 at 1204 by Stacey Lucas RN patient stated she has items in safe which was debit card and bravo. patient instructed to stop in lobby to filler picker items from security.
--- NOTE | 2020-06-18 12:05 | NUR ---
IV was dc'd by Licha Richmond prior to patient dc.
== END 2020-06-18 11:37 | disposition home or self-care (01) | DRG 469 ==
LOC: ER 20:24 → ED HOLD 23:42 → CICU 2S 06-16 02:24 → SUR 3N 06-16 11:59
PROVIDERS: ADMIT Internal Medicine Critical Care Medicine; ATTEND Internal Medicine Critical Care Medicine
DX: N17.9 Acute kidney failure, unspecified (principal); E03.9 Hypothyroidism, unspecified; E11.22 Type 2 diabetes mellitus with diabetic chronic kidney disease; E11.36 Type 2 diabetes mellitus with diabetic cataract; E87.5 Hyperkalemia; I13.0 Hypertensive heart and chronic kidney disease with heart failure and stage 1 through stage 4 chronic kidney disease, or unspecified chronic kidney disease; I50.9 Heart failure, unspecified; K59.00 Constipation, unspecified; D63.1 Anemia in chronic kidney disease; N18.4 Chronic kidney disease, stage 4 (severe); Z80.0 Family history of malignant neoplasm of digestive organs; Z85.028 Personal history of other malignant neoplasm of stomach; Z87.11 Personal history of peptic ulcer disease; Z88.2 Allergy status to sulfonamides
CPT/HCPCS: 36415; 71045; 78707; 80048; 80053; 82570; 82948; 83036; 83735; 83880; 84100; 84156; 84443; 84484; 84560; 85025; 85610; 85730; 87081; 93005; 93976; 94640; 94760; 96365; 96375; 97116; 97161; 99291; A9562; G0378; J1815; J1940; Q0177

== ENCOUNTER 2020-07-06 19:50 | Inpatient (IN) | payer MEDICAID ==
[~2020-07-06] VITALS: Ht 154.9 cm; Wt 84.1 kg
[~2020-07-06 19:50] MED LIST changes: -AMLO10TA13 PO; +ATOR10TA70 PO; +DILT240C52 PO; +LEVO25TA7 PO
[2020-07-06] MEDS ORDERED: CefTRIAXone 2gm/D5W 50ml 50 ML IV ONE (22:15)
[2020-07-06] MEDS ORDERED: CefTRIAXone inj 2,000 MG in normal saline 100ml IV soln 100 ML IV ONE (22:18)
--- NOTE | 2020-07-06 22:28 | NUR ---
attempted IV placement; was not able to get line placed, pt is a hard stick. asking head charger to assist with placement.
[2020-07-06 23:23] LABS: BASOPHILS % (AUTO) 0.4 % (0-1); EOSINOPHILS # (AUTO) 0.7 X10'3 (0-0.9); EOSINOPHILS % (AUTO) 13.8 % (0-6); HEMOGLOBIN 8.5 g/dl (12.0-16.0); LYMPHOCYTES # (AUTO) 0.9 X10'3 (1.1-4.8); LYMPHOCYTES % (AUTO) 18.3 % (21-51); MEAN CORPUSCULAR HEMOGLOBIN 31.6 PG (27.0-31.0); MEAN CORPUSCULAR HGB CONC 34.1 g/dL (33.0-36.5); MEAN CORPUSCULAR VOLUME 92.8 FL (78-98); MEAN PLATELET VOLUME 7.2 FL (7.4-10.4); MONOCYTES # (AUTO) 0.6 X10'3 (0-0.9); MONOCYTES % (AUTO) 11.3 % (2-12); NEUTROPHILS # (AUTO) 2.9 X10'3 (1.8-7.7); NEUTROPHILS % (AUTO) 56.2 % (42-75); PLATELET COUNT 307 X10'3 (140-440); RED CELL DISTRIBUTION WIDTH 13.7 % (11.5-14.5); WHITE BLOOD COUNT 5.1 X10'3 (4.5-11.0)
[2020-07-06 23:24] LABS: CLARITY,URINE CLEAR (Clear); COLOR,URINE STRAW (Yellow); GLUCOSE, URINE NEGATIVE (Neg); KETONES,URINE NEGATIVE (Neg); LEUKOCYTE ESTERASE ,URINE NEGATIVE (Neg); NITRITES, URINE NEGATIVE (Neg); OCCULT BLOOD,URINE NEGATIVE (Neg); PH,URINE 6.5 (4.8-8.0); PROTEIN,URINE TRACE mg/dl (Neg); UROBILINOGEN,URINE 0.2 E.U/dL (0.2-1.0)
[2020-07-06 23:29] LABS: UA COLLECTION TYPE CLN CATCH MIDSTREAM
[2020-07-06 23:32] LABS: PARTIAL THROMBOPLASTIN TIME 39 SECONDS (22-32)
[2020-07-06 23:43] LABS: ALANINE AMINOTRANSFERASE 16 U/L (12-78); ALBUMIN 3.5 G/DL (3.4-5.0); ALBUMIN/GLOBULIN RATIO 0.9 (1.1-1.5); ALKALINE PHOSPHATASE 50 IU/L (46-116); ANION GAP 14 (8-16); ASPARTATE AMINO TRANSFERASE 17 U/L (10-37); BILIRUBIN,TOTAL 0.3 MG/DL (0.1-1.0); BLOOD UREA NITROGEN 52 MG/DL (7-18); BUN/CREATININE RATIO 13.5 (6.6-38.0); CALCIUM 8.5 MG/DL (8.5-10.1); CHLORIDE 94 MMOL/L (99-107); CREATININE 3.84 MG/DL (0.40-0.90); GLUCOSE 95 MG/DL (70-104); MAGNESIUM 1.8 MG/DL (1.5-2.4); POTASSIUM 4.9 MMOL/L (3.5-5.1); SODIUM 125 MMOL/L (135-145); TOTAL CARBON DIOXIDE 17.5 MMOL/L (24-32); TOTAL PROTEIN 7.6 G/DL (6.4-8.2); eGFR 14 ML/MIN
[2020-07-07 00:01] LABS: WBC,URINE 0-4 /HPF (0-4)
[2020-07-07 00:02] LABS: BACTERIA,URINE NONE SEEN /HPF (Neg); RBC,URINE NONE SEEN /HPF (0-2)
[2020-07-07 00:03] LABS: MUCUS STRANDS FEW /LPF (Neg); SQUAMOUS EPITHELIAL CELL,UR FEW /LPF (FEW)
[2020-07-07] MEDS ORDERED: insulin Lispro (HumaLOG) vial - multi-dose SQ SCH (01:40)
[2020-07-07] MEDS ORDERED: potassium CL 10mEq/100ml bag 100 ML IV PRN ×2 (01:40)
[2020-07-07] MEDS ORDERED: potassium Cl 20 mEq SR tablet PO PRN ×2 (01:40)
[2020-07-07] MEDS ORDERED: MESSAGE TO PHARMACY PO ONE (01:40)
[2020-07-07] MEDS ORDERED: magnesium 4gm in 100ml NS 100 ML IV PRN (01:40)
[2020-07-07] MEDS ORDERED: magnesium 2GM in 50ml NS 50 ML IV PRN (01:40)
[2020-07-07] MEDS ORDERED: acetaminophen 325mg tablet PO PRN (01:40)
[2020-07-07] MEDS ORDERED: dextrose ORAL solution 15 GM/59 ML bottle PO PRN (01:40)
[2020-07-07] MEDS ORDERED: ondansetron/PF 4mg/2ml inj IV PRN (01:40)
[2020-07-07] MEDS ORDERED: docusate sod 100mg capsule PO PRN (01:40)
[2020-07-07] MEDS ORDERED: glucagon, human recombinant 1mg kit SUBCUT PRN (01:40)
[2020-07-07] MEDS ORDERED: dextrose 50%-water 50ml dispensing syringe IV PRN ×2 (01:40)
[2020-07-07 02:20] VITALS: BP 149/69
[2020-07-07] MEDS: clindamycin 600mg/D5W 50ml 50 ML IV SCH ×4 (03:31→21:28)
[2020-07-07] MEDS: normal saline 1000ml 1,000 ML IV SCH ×3 (03:31→21:37)
--- NOTE | 2020-07-07 06:26 | NUR ---
Problems reprioritized. Patient report given, questions answered & plan of care reviewed with Kayla ORELLANA.
--- NOTE | 2020-07-07 06:33 | NUR ---
I have received report from Aydee ORELLANA and had the opportunity to ask questions and assume patient care.
[2020-07-07] MEDS: dextrose ORAL solution 15 GM/59 ML bottle PO PRN (07:16)
[2020-07-07] MEDS: isosorbide mononitrate 30mg tab.SR.24H PO SCH (07:33)
[2020-07-07] MEDS: atorvastatin 10mg tablet PO SCH (07:33)
[2020-07-07] MEDS: heparin, porcine 5000 units/ml vial SQ SCH ×2 (07:35→21:26)
[2020-07-07] MEDS: diltiazem CD 120mg capsule (once-daily) PO SCH (07:36)
[2020-07-07] MEDS: hydrALAZINE 25 MG tablet PO SCH ×3 (07:36→21:28)
[2020-07-07] MEDS: carVEDilol 12.5mg tablet PO SCH ×2 (07:37→21:25)
[2020-07-07] MEDS: K and/or MAG REPLACEMENT MC SCH ×2 (07:38→18:18)
--- NOTE | 2020-07-07 07:47 | NUR ---
Spoke to Susie in Pharmacy about Pepcid dose missing, She will find out where it is.
[2020-07-07] MEDS ORDERED: famotidine 20mg tablet PO SCH (08:00)
[2020-07-07] MEDS ORDERED: furosemide 20MG tablet PO SCH (08:00)
[2020-07-07 08:46] LABS: BASOPHILS % (AUTO) 0.4 % (0-1); EOSINOPHILS # (AUTO) 0.7 X10'3 (0-0.9); EOSINOPHILS % (AUTO) 15.9 % (0-6); HEMATOCRIT 26.3 % (35.0-45.0); HEMOGLOBIN 8.8 g/dl (12.0-16.0); LYMPHOCYTES % (AUTO) 23.8 % (21-51); MEAN CORPUSCULAR HEMOGLOBIN 31.1 PG (27.0-31.0); MEAN CORPUSCULAR HGB CONC 33.6 g/dL (33.0-36.5); MEAN CORPUSCULAR VOLUME 92.4 FL (78-98); MEAN PLATELET VOLUME 7.3 FL (7.4-10.4); MONOCYTES # (AUTO) 0.5 X10'3 (0-0.9); MONOCYTES % (AUTO) 12.7 % (2-12); NEUTROPHILS % (AUTO) 47.2 % (42-75); PLATELET COUNT 322 X10'3 (140-440); RED BLOOD COUNT 2.84 X10'6 (4.20-5.60); RED CELL DISTRIBUTION WIDTH 13.7 % (11.5-14.5); WHITE BLOOD COUNT 4.2 X10'3 (4.5-11.0)
[2020-07-07 08:56] VITALS: BP 159/75
[2020-07-07 09:08] LABS: ALANINE AMINOTRANSFERASE 16 U/L (12-78); ALBUMIN 3.3 G/DL (3.4-5.0); ALBUMIN/GLOBULIN RATIO 0.8 (1.1-1.5); ALKALINE PHOSPHATASE 51 IU/L (46-116); ANION GAP 12 (8-16); ASPARTATE AMINO TRANSFERASE 16 U/L (10-37); BILIRUBIN,TOTAL 0.2 MG/DL (0.1-1.0); BLOOD UREA NITROGEN 50 MG/DL (7-18); BUN/CREATININE RATIO 13.6 (6.6-38.0); CALCIUM 8.7 MG/DL (8.5-10.1); CHLORIDE 102 MMOL/L (99-107); CREATININE 3.69 MG/DL (0.40-0.90); GLUCOSE 102 MG/DL (70-104); POTASSIUM 4.9 MMOL/L (3.5-5.1); SODIUM 134 MMOL/L (135-145); TOTAL CARBON DIOXIDE 20.1 MMOL/L (24-32); TOTAL PROTEIN 7.6 G/DL (6.4-8.2); eGFR 15 ML/MIN
[2020-07-07 09:11] LABS: % IRON SATURATION 24 % (11-46); IRON 44 UG/DL (49-151); TOTAL IRON BINDING CAPACITY 186 UG/DL (259-388)
[2020-07-07] MEDS ORDERED: famotidine 10mg tablet PO SCH (14:06)
--- NOTE | 2020-07-07 14:17 | NUR ---
DM Consult: Pt A1C 6.1 and not appropriate for DM ed at this time. Addendum: 07/07/20 at [address] Amended: Links added.
--- NOTE | 2020-07-07 18:30 | NUR ---
Problems reprioritized. Patient report given, questions answered & plan of care reviewed with Ovidio RN.
[2020-07-07 20:00] VITALS: BP 141/48
[2020-07-07] MEDS ORDERED: insulin glargine (Lantus) pen - multi-dose SQ SCH (21:00)
[2020-07-07] MEDS ORDERED: montelukast 10mg tablet PO SCH (21:00)
[2020-07-07] MEDS ORDERED: aspirin 81mg tab.chew PO SCH (21:00)
[2020-07-08] VITALS: BP 120/43
[2020-07-08] MEDS: clindamycin 600mg/D5W 50ml 50 ML IV SCH ×2 (02:27→07:44)
--- NOTE | 2020-07-08 06:57 | NUR ---
Patient in room [facility] 344. I have received report from Dali ORELLANA and had the opportunity to ask questions and assume patient care.
[2020-07-08] MEDS: dextrose ORAL solution 15 GM/59 ML bottle PO PRN (07:04)
[2020-07-08 07:16] LABS: BASOPHILS % (AUTO) 0.4 % (0-1); EOSINOPHILS # (AUTO) 0.7 X10'3 (0-0.9); EOSINOPHILS % (AUTO) 15.9 % (0-6); HEMATOCRIT 23.4 % (35.0-45.0); HEMOGLOBIN 7.9 g/dl (12.0-16.0); LYMPHOCYTES # (AUTO) 1.1 X10'3 (1.1-4.8); LYMPHOCYTES % (AUTO) 25.2 % (21-51); MEAN CORPUSCULAR HEMOGLOBIN 32.1 PG (27.0-31.0); MEAN CORPUSCULAR HGB CONC 33.9 g/dL (33.0-36.5); MEAN CORPUSCULAR VOLUME 94.5 FL (78-98); MEAN PLATELET VOLUME 7.3 FL (7.4-10.4); MONOCYTES # (AUTO) 0.6 X10'3 (0-0.9); NEUTROPHILS # (AUTO) 1.9 X10'3 (1.8-7.7); NEUTROPHILS % (AUTO) 44.5 % (42-75); PLATELET COUNT 297 X10'3 (140-440); RED BLOOD COUNT 2.48 X10'6 (4.20-5.60); RED CELL DISTRIBUTION WIDTH 14.3 % (11.5-14.5); WHITE BLOOD COUNT 4.2 X10'3 (4.5-11.0)
[2020-07-08] MEDS: atorvastatin 10mg tablet PO SCH (07:39)
[2020-07-08] MEDS: diltiazem CD 120mg capsule (once-daily) PO SCH (07:40)
[2020-07-08] MEDS: carVEDilol 12.5mg tablet PO SCH (07:40)
[2020-07-08] MEDS: hydrALAZINE 25 MG tablet PO SCH ×2 (07:41→13:00)
[2020-07-08] MEDS: isosorbide mononitrate 30mg tab.SR.24H PO SCH (07:42)
[2020-07-08] MEDS: heparin, porcine 5000 units/ml vial SQ SCH (07:47)
[2020-07-08 07:57] VITALS: BP 147/62
[2020-07-08 08:00] VITALS: BP 147/62
[2020-07-08] MEDS: K and/or MAG REPLACEMENT MC SCH (08:00)
[2020-07-08 08:03] LABS: ALANINE AMINOTRANSFERASE 14 U/L (12-78); ALBUMIN 2.9 G/DL (3.4-5.0); ALBUMIN/GLOBULIN RATIO 0.7 (1.1-1.5); ALKALINE PHOSPHATASE 43 IU/L (46-116); ANION GAP 12 (8-16); ASPARTATE AMINO TRANSFERASE 14 U/L (10-37); BILIRUBIN,TOTAL 0.2 MG/DL (0.1-1.0); BLOOD UREA NITROGEN 47 MG/DL (7-18); BUN/CREATININE RATIO 12.2 (6.6-38.0); CALCIUM 8.3 MG/DL (8.5-10.1); CHLORIDE 109 MMOL/L (99-107); CHOL/HDL RATIO 1.8 (0.00-4.99); CHOLESTEROL 122 MG/DL (0-200); CREATININE 3.85 MG/DL (0.40-0.90); GLUCOSE 73 MG/DL (70-104); HDL CHOLESTEROL 68 MG/DL (35-60); LDL CHOLESTEROL 41 MG/DL (50-100); POTASSIUM 4.9 MMOL/L (3.5-5.1); SODIUM 140 MMOL/L (135-145); TOTAL CARBON DIOXIDE 18.7 MMOL/L (24-32); TOTAL PROTEIN 6.8 G/DL (6.4-8.2); TRIGLYCERIDES 61 MG/DL (20-135); eGFR 14 ML/MIN
[2020-07-08] MEDS ORDERED: GLIM2TAB6 PO (10:23)
[2020-07-08] MEDS ORDERED: CLIN-5 PO (10:28)
--- NOTE | 2020-07-08 13:00 | NUR ---
Patient discharged with new antibiotic medication which was explained at discharge. Patient versed on all follow up appointment and skin care for the cellulitis patient expressed verbal understanding of all education. Patient iv taken out at discharge canula was whole and intact upon inspection. Patient taken to lobby via wheelchair and taken home by private vehicle.
== END 2020-07-08 13:22 | disposition home or self-care (01) | DRG 383 ==
LOC: ER 19:51 → ED HOLD 07-07 01:37 → SUR 3N 07-07 02:31
PROVIDERS: ADMIT Family Medicine; ATTEND Family Medicine
DX: L03.116 Cellulitis of left lower limb (principal); D64.9 Anemia, unspecified; E03.9 Hypothyroidism, unspecified; E11.22 Type 2 diabetes mellitus with diabetic chronic kidney disease; E78.5 Hyperlipidemia, unspecified; E87.1 Hypo-osmolality and hyponatremia; G93.41 Metabolic encephalopathy; I13.0 Hypertensive heart and chronic kidney disease with heart failure and stage 1 through stage 4 chronic kidney disease, or unspecified chronic kidney disease; I50.9 Heart failure, unspecified; N18.4 Chronic kidney disease, stage 4 (severe); Z80.0 Family history of malignant neoplasm of digestive organs; Z82.49 Family history of ischemic heart disease and other diseases of the circulatory system; Z83.3 Family history of diabetes mellitus; Z87.11 Personal history of peptic ulcer disease; Z88.2 Allergy status to sulfonamides; Z79.899 Other long term (current) drug therapy; Z79.82 Long term (current) use of aspirin
CPT/HCPCS: 36415; 80053; 80061; 81001; 82948; 83036; 83540; 83550; 83605; 83735; 83880; 84145; 85025; 85610; 85730; 87040; 87081; 93971; 99285; G0378; J0696; J1644; J1815; J3490; J7030

== ENCOUNTER 2023-07-09 17:38 | Emergency (ER) | payer MEDICARE, MEDICAID ==
[~2023-07-09] VITALS: Ht 152.4 cm; Wt 78.0 kg
[~2023-07-09 17:38] MED LIST changes: -AMA1T PO; +GLIM2TAB6 PO; -LEVO25TA7 PO; +MONT-40 PO; -MONT10TA26 PO
[2023-07-09 17:43] VITALS: TEMP 97.8
[2023-07-09] MEDS ORDERED: normal saline 1000ML IV soln IVB ONE (18:45)
[2023-07-09 18:57] VITALS: BP 112/56; PULSE 63; RESP 18; O2SAT 98
[2023-07-09 19:47] LABS: BASOPHILS % (AUTO) 0.6 % (0-1); EOSINOPHILS # (AUTO) 0.1 X10'3 (0-0.9); EOSINOPHILS % (AUTO) 4.2 % (0-6); HEMATOCRIT 31.8 % (35.0-45.0); HEMOGLOBIN 10.5 g/dl (12.0-16.0); LYMPHOCYTES # (AUTO) 0.9 X10'3 (1.1-4.8); LYMPHOCYTES % (AUTO) 28.2 % (21-51); MEAN CORPUSCULAR HEMOGLOBIN 31.5 PG (27.0-31.0); MEAN CORPUSCULAR HGB CONC 32.9 g/dL (33.0-36.5); MEAN CORPUSCULAR VOLUME 95.8 FL (78-98); MEAN PLATELET VOLUME 8.4 FL (7.4-10.4); MONOCYTES # (AUTO) 0.4 X10'3 (0-0.9); NEUTROPHILS # (AUTO) 1.9 X10'3 (1.8-7.7); PLATELET COUNT 231 X10'3 (140-440); RED BLOOD COUNT 3.32 X10'6 (4.20-5.60); RED CELL DISTRIBUTION WIDTH 14.9 % (11.5-14.5); WHITE BLOOD COUNT 3.3 X10'3 (4.5-11.0)
[2023-07-09 19:57] LABS: ALANINE AMINOTRANSFERASE 33 U/L (12-78); ALBUMIN 3.9 G/DL (3.4-5.0); ALKALINE PHOSPHATASE 95 IU/L (46-116); ANION GAP 13 (8-16); ASPARTATE AMINO TRANSFERASE 24 U/L (10-37); BILIRUBIN,TOTAL 0.3 MG/DL (0.1-1.0); BLOOD UREA NITROGEN 61 MG/DL (7-18); BUN/CREATININE RATIO 12.3 (10.0-20.0); CALCIUM 9.8 MG/DL (8.5-10.1); CHLORIDE 101 MMOL/L (99-107); CREATININE 4.95 MG/DL (0.40-0.90); GLUCOSE 303 MG/DL (70-104); POTASSIUM 4.5 MMOL/L (3.5-5.1); SODIUM 135 MMOL/L (135-145); TOTAL CARBON DIOXIDE 20.9 MMOL/L (24-32); TOTAL PROTEIN 7.9 G/DL (6.4-8.2); eCRCL 8 ML/MIN; eGFR 11 ML/MIN
--- NOTE | 2023-07-09 20:30 | NUR ---
lab has the urine, Not received but in the bin: instructed them to receive it and run it RUPERTO
[2023-07-09 20:35] LABS: BILIRUBIN,URINE NEGATIVE (Neg); CLARITY,URINE CLEAR (Clear); COLOR,URINE YELLOW (Yellow); GLUCOSE, URINE 250 mg/dl (Neg); KETONES,URINE NEGATIVE (Neg); LEUKOCYTE ESTERASE ,URINE NEGATIVE (Neg); NITRITES, URINE NEGATIVE (Neg); OCCULT BLOOD,URINE NEGATIVE (Neg); PROTEIN,URINE TRACE mg/dl (Neg); UROBILINOGEN,URINE 0.2 E.U/dL (0.2-1.0)
[2023-07-09 20:40] LABS: UA COLLECTION TYPE CLN CATCH MIDSTREAM
[2023-07-09 20:42] LABS: SQUAMOUS EPITHELIAL CELL,UR FEW /LPF (FEW)
[2023-07-09 20:44] LABS: WBC,URINE 0-4 /HPF (0-4)
[2023-07-09 20:45] LABS: BACTERIA,URINE FEW /HPF (Neg); RBC,URINE NONE SEEN /HPF (0-2)
[2023-07-09 20:46] LABS: MUCUS STRANDS FEW /LPF (Neg)
[2023-07-09 20:50] LABS: HYALINE CASTS 0-3 /LPF (NEGATIVE)
[2023-07-09 20:51] LABS: STARCH,URINE FEW /HPF (NEGATIVE)
== END 2023-07-09 21:36 | disposition home or self-care (01) ==
LOC: ER 17:39
DX: I95.9 Hypotension, unspecified (principal); E86.0 Dehydration; I13.0 Hypertensive heart and chronic kidney disease with heart failure and stage 1 through stage 4 chronic kidney disease, or unspecified chronic kidney disease; I50.9 Heart failure, unspecified; N18.9 Chronic kidney disease, unspecified; E11.9 Type 2 diabetes mellitus without complications; Z88.2 Allergy status to sulfonamides; Z79.82 Long term (current) use of aspirin; Z79.899 Other long term (current) drug therapy
CPT/HCPCS: 36415; 80053; 81001; 84484; 85025; 93005; 96360; 99284; J7030

== ENCOUNTER 2024-07-17 22:59 | Emergency (ER) | payer MEDICARE, MEDICAID ==
[~2024-07-17] VITALS: Ht 152.4 cm; Wt 74.1 kg
[~2024-07-17 22:59] MED LIST changes: +HYDR100T12 PO; -HYDR100T27 PO
[2024-07-18] MEDS: bacitracin 15gm ointment TP ONE (01:45)
[2024-07-18 08:21] VITALS: BP 139/80; PULSE 81; RESP 18; TEMP 98.7; O2SAT 100
== END 2024-07-18 08:23 | disposition home or self-care (01) ==
LOC: ER 23:00
DX: T80.1XXA Vascular complications following infusion, transfusion and therapeutic injection, initial encounter (principal); I13.0 Hypertensive heart and chronic kidney disease with heart failure and stage 1 through stage 4 chronic kidney disease, or unspecified chronic kidney disease; N18.9 Chronic kidney disease, unspecified; I50.9 Heart failure, unspecified; E11.22 Type 2 diabetes mellitus with diabetic chronic kidney disease; Z88.2 Allergy status to sulfonamides; Z79.82 Long term (current) use of aspirin; Z79.899 Other long term (current) drug therapy
CPT/HCPCS: 99283